=== PATIENT | female | born 1970 | race Caucasian/White ===

== ENCOUNTER 2020-09-12 10:45 | Outpatient (REF) | payer OTHER, SELFPAY ==
--- NOTE | 2020-09-12 15:25 | MHC.AU.P13 ---
Adult Audiological Evaluation Date of Visit: 09/12/20 Reason for Appointment: Patient was diagnosed with hearing loss approximately 3 years ago. She has been using hearing aids since 06/09/2017. About one month ago, patient unexpectedly went into a diabetic coma. She had not been diagnosed with diabetes prior to this incident. She spent several days in the hospital, during which she also developed sepsis. She was given IV antibiotics, including Gentamicin. Since these events, she has noticed a significant decrease in her hearing. Previous Hearing Test Results: On 04/06/2017 at [facility]- Overall mild/moderate sensorineural hearing loss bilaterally Ear History: Family History of Hearing Loss?: Yes: Mother Ear Infections in Childhood: Both Ears Previous Ear Surgery: Multiple sets of PE tubes in childhood Medical History: Medical History: Diabetes, Migraines, Tobacco Use Hearing Instrument History- Right Ear: Sheet Metal Worker Helper: Oticon Model: OPN 2 miniRITE-T 85 Serial Number: [id number] Dispensed By: [facility] Date of Fittin06/09/2017 Hearing aids are currently lost and no longer under the loss and damage warranty. Hearing Instrument History- Left Ear: Sheet Metal Worker Helper: Oticon Model: OPN 2 miniRITE-T 85 Serial Number: [id number] Dispensed By: [facility] Date of Fittin06/09/2017 Hearing aids are currently lost and no longer under the loss and damage warranty. Otoscopy: Right Ear: Unremarkable Left Ear: Unremarkable Tympanometry: Right Ear: Normal Middle Ear System (Type A) Left Ear: Normal Middle Ear System (Type A) Hearing Evaluation: Transducer(s) Used: Insert Earphones, Bone Conduction Method: Conventional Audiometry Stimuli Used: Pure Tones Right Ear: Description of Hearing: Overall moderately-severe sensorineural hearing loss Left Ear: Description of Hearing: Overall moderately-severe sensorineural hearing loss Speech Recognition Threshold (SRT): Method Used: Recorded Lists Stimuli Used: Spondee Words Right Ear: 55 dBHL Left Ear: 55 dBHL Word Discrimination: Method: Recorded Lists Word Lists Used: NU-6 Right Ear: 92% at 80 dBHL Left Ear: 96% at 80 dBHL Most Comfortable Level (MCL): Right Ear: 80 dBHL Left Ear: 80 dBHL Comparison: Compared to an evaluation from 04/06/2017 at [facility], hearing has decreased significantly in both ears. Recommendations: Audiological re-evaluation in one year. Hearing has decreased significantly since last evaluation in 2017. A follow-up with Ear, Nose, and Throat may be warranted to address the hearing changes following the patient's hospitalization. Patient's hearing aids are lost and are no longer under the loss and damage warranty. A request will be sent to her insurance for new hearing aids. If approved, patient will be contacted to schedule a hearing aid fitting. If approved, we will order a pair of M2M Solutioneo M70-R in color P1 with size 1M receivers and slim tips. Impressions were taken bilaterally without incident and will be sent to [employer] upon approval. Diagnosis: Primary Diagnosis: H90.3 Bilateral Sensorineural Hearing Loss Services Performed: Services Performed: Comprehensive Audiological Evaluation (CPT 29274) Tympanometry (CPT 38649) Signature: Provider: Mary Stevenson, KELSEA-A
--- NOTE | 2020-09-14 08:25 | MHC.AU.MED ---
Medical Clearance for Hearing Instrumentation Date: 09/14/20 Patient Name: Karly Rajput Date of : 1970 Dear Philly Moss MD, We have seen your patient on 09/12/2020 and have determined that they are a candidate for amplification (See accompanying report). Specifically, they would benefit from: Hearing aid use in both ears There is a statute that addresses Medical Evaluation Requirements prior to fitting a patient with a hearing aid. According to [place] statute 265 CMR:6.03(1), (a) General. Except as provided in 265 CMR 6.03(1)(b), a warp tier shall not sell a hearing aid unless the prospective user has presented to the warp tier a written statement signed by a licensed physician that states that the patient's hearing loss has been medically evaluated and the patient may be considered a candidate for a hearing aid. The medical evaluation must have taken place within the preceding six months. Please note: Due to the [place] Statute referenced above, we cannot accept a signature other than that of a licensed physician. TILE LAYER DRAINAGE and PA signatures cannot be accepted. I am in agreement with the above recommendation. There is no medical contraindication for hearing instrumentation. Physician Signature Date Physician Name (Printed)
== END 2020-09-12 10:46 | disposition home or self-care (01) ==
LOC: HO.SH 10:45
PROVIDERS: PCP Internal Medicine; Referring Provider Internal Medicine; Visit Provider Internal Medicine
DX: H90.3 Sensorineural hearing loss, bilateral (principal); B35.6 Tinea cruris
CPT/HCPCS: 92557; 92567

== ENCOUNTER 2020-12-06 15:09 | Outpatient (REF) | payer OTHER, SELFPAY | END 2020-12-06 15:10 | disposition home or self-care (01) | LOC: HO.HAP 15:09 | PROVIDERS: Visit Provider Internal Medicine | DX: Z46.1 Encounter for fitting and adjustment of hearing aid (principal); H90.3 Sensorineural hearing loss, bilateral | CPT/HCPCS: V5011; V5020; V5160; V5261; V5264 ==

== ENCOUNTER 2022-11-27 10:24 | Outpatient (REF) | payer OTHER, SELFPAY ==
--- NOTE | 2022-11-27 12:49 | MHC.AU.HA3 ---
Hearing Instrument Follow-Up- Binaural Date of Visit: 11/27/22 Right Ear: Shane, Model, Color, Serial Number: Deyvi Gonsalves P70-R, #[id number] Repairing Calibrator Repair Warranty: 02/27/2024 Repairing Calibrator Loss and Damage Warranty: 02/27/2024 Battery Size: Rechargeable Door Frame Assembler Machine/Slim Tube: 1 M Earmold/Dome/CShell/SlimTip:cShell, SN: [id number], Service Warranty: 03/29/2021 Type of Wax Guard: Cerustop Dispensed By: [facility] Date of Fittin12/05/2020 Left Ear: Shane, Model, Color, Serial Number: Deyvi Gonsalves P70-R, #[id number] Repairing Calibrator Repair Warranty: 02/27/2024 Repairing Calibrator Loss and Damage Warranty: 02/27/2024 Battery Size: Rechargeable Door Frame Assembler Machine/Slim Tube: 1 M Earmold/Dome/CShell/SlimTip: Bryanna, SN: [id number], Service Warranty: 03/29/2021 Type of Wax Guard: Cerustop Dispensed By: [facility] Date of Fittin12/06/2020 Follow-Up Summary: Patient's last visit was the fitting on 12/06/2020. She reports she has been unable to follow-up until now as she spent a significant amount of time out of state taking care of her mother, and then had major health issues of her own. In 2021, she spent 2 months in the ICU with severe pneumonia. She recalls that she was given IV vancomycin and was at one point on a ventilator, but does not have full memory of everything that happened during this time due to the severe state she was in. She has noticed her hearing seems worse since these events. She reports that the administrative support clerk wires have not been long enough. The hearing aids are pulling forward, then flopping off her ears. New impressions were taken bilaterally without incident for new cShells. We will order with a size 2 wire. Recommendations: Due to the suspected change in hearing, an updated audio eval is highly recommended. She will contact her PCP today and ask them to fax an order. If possible, it would be ideal to fit the new cShells on the same day as the audio; however, we are currently booking into December for audios, and the cShells will likely arrive before then. When the cShells come in, we can ask the patient if she would like to wait until her scheduled audio to fit them, or if she would like to come in for them sooner than her scheduled audio. Diagnosis Code(s): Primary Diagnosis: H90.3 Bilateral Sensorineural Hearing Loss Signature: Provider: Felipa Stevenson, KELSAE-A
== END 2022-11-27 10:25 | disposition home or self-care (01) ==
LOC: HO.HAP 10:24
PROVIDERS: Visit Provider Internal Medicine
DX: Z46.1 Encounter for fitting and adjustment of hearing aid (principal); H90.3 Sensorineural hearing loss, bilateral
CPT/HCPCS: V5275

== ENCOUNTER 2022-12-18 14:49 | Outpatient (REF) | payer OTHER, SELFPAY ==
--- NOTE | 2022-12-18 15:40 | MHC.AU.HA3 ---
Hearing Instrument Follow-Up- Binaural Date of Visit: 12/18/22 Right Ear: Shane, Model, Color, Serial Number: Deyvi Gonsalves P70-R, #[id number] Commercial Real Estate Associate Repair Warranty: 03/06/2023 Commercial Real Estate Associate Loss and Damage Warranty: 02/27/2024 Earmold/Dome/CShell/SlimTip:cShell New Serial #[id number] Milligan, Size 2M drafter topographical Type of Wax Guard: Cerustop Dispensed By: [facility], Date of Fittin12/05/2020 Left Ear: Shane, Model, Color, Serial Number: Deyvi Gibsono P70-R, #[id number] Commercial Real Estate Associate Repair Warranty: 03/06/2023 Commercial Real Estate Associate Loss and Damage Warranty: 02/27/2024 Earmold/Dome/CShell/SlimTip: cShell New Serial #[id number], Milligan, Size 2M drafter topographical Type of Wax Guard: Cerustop Dispensed By: [facility], Date of Fittin12/06/2020 Follow-Up Summary: Patient arrived to fit new cShells with longer receivers to her hearing aids; however, when she was cleaning the hearing aids, the right hearing aid fell in the toilet and was accidentally flushed. The new left cShell was coupled to the left hearing aid. It fits well. She feels it is more secure and thinks the longer drafter topographical length is more comfortable. A loss and damage form for the right hearing aid was filled out and e-mailed to [employer]. We will hold onto the new right cShell until the replacement hearing aid arrives. Recommendations: Patient will be contacted when materials have arrived. Diagnosis Code(s): Primary Diagnosis: H90.3 Bilateral Sensorineural Hearing Loss Signature: Provider: Felipa Stevenson, KELSEA-A
== END 2022-12-18 14:50 | disposition home or self-care (01) ==
LOC: HO.HAP 14:49
PROVIDERS: Visit Provider Internal Medicine
DX: Z46.1 Encounter for fitting and adjustment of hearing aid (principal); H90.3 Sensorineural hearing loss, bilateral
CPT/HCPCS: V5264

== ENCOUNTER 2022-12-29 13:55 | Outpatient (REF) | payer OTHER, SELFPAY ==
--- NOTE | 2022-12-29 15:50 | MHC.AU.HA3 ---
Hearing Instrument Follow-Up- Binaural Date of Visit: 12/29/22 Right Ear: Shane, Model, Color, Serial Number: Deyvi Gonsalves P70-R SN: [id number] Color: Sand Beige Epic Beacon Analyst Repair Warranty: 02/27/2024 Epic Beacon Analyst Loss and Damage Warranty: USED 12/29/2022 Battery Size: Rechargeable Metal Mold Dresser/Slim Tube: 2P Earmold/Dome/CShell/SlimTip: cShell SN: [id number] Kiera: 03/06/2023 Type of Wax Guard: CeruStop Dispensed By: [facility] Date of Fittin12/06/2020 Left Ear: Shane, Model, Color, Serial Number: Deyvi Gonsalves P70-R SN: [id number] Color: Sand Beige Epic Beacon Analyst Repair Warranty: 02/27/2024 Epic Beacon Analyst Loss and Damage Warranty: 02/27/2024 Battery Size: Rechargeable Metal Mold Dresser/Slim Tube: 2P Earmold/Dome/CShell/SlimTip: cShell SN: [id number] Kiera: 03/06/2023 Type of Wax Guard: CeruStop Dispensed By: [facility] Date of Fittin12/06/2020 Follow-Up Summary: Karly picked up the replacement right hearing aid and new c-shell with longer bar assistant wire. She did not bring her left hearing aid to this appointment. Reprogrammed right hearing aid to previous settings and re-ran feedback real estate sales manager. Karly reported good overall sound quality although slightly loud but not uncomfortable. New c-shell and longer bar assistant wire good fit. Recommendations: Reminded Karly to obtain doctor's order for updated hearing test due to perceived change in hearing after hospitalization. Return with both hearing aids for binaural reprogramming following updated hearing evaluation. Diagnosis Code(s): Primary Diagnosis: H90.3 Bilateral Sensorineural Hearing Loss Signature: Provider: Felipa Aranda, [facility]
== END 2022-12-29 13:56 | disposition home or self-care (01) ==
LOC: HO.HAP 13:55
PROVIDERS: Visit Provider Internal Medicine
DX: Z46.1 Encounter for fitting and adjustment of hearing aid (principal); H90.3 Sensorineural hearing loss, bilateral
CPT/HCPCS: 92592

== ENCOUNTER 2025-05-04 14:14 | Outpatient (REF) | payer OTHER, SELFPAY ==
--- NOTE | 2025-05-04 | EEG_ITS ---
Disease 16 channel EEG with an EKG lead. Patient is reported awake during the tracing. Background EEG rhythm is 10-12 hertz 5-50 microvolt posteriorly and lower amplitude fast anteriorly. Photic stimulation does not produce any significant abnormality. Hyperventilation is unremarkable. No sharp wave spikes or paroxysmal tendency noted. Impression: No significant abnormality noted on this EEG. MTDD
--- OUTSIDE RECORDS SUMMARY | 2025-05-04 14:17 | XMS_ITS | Clinical Summary ---
Author Organization [facility] Facility Address [address] [place] [id number] Care Team Providers Care Legal Manager Name Role Phone Unavailable Primary Care Provider Unavailabl e Social History Tobacco Use Types Packs/Day Years Used Date Smoking Tobacco: Never Assessed Comments Unknown Sex and Gender Information Value Date Recorded Sex Assigned at Not on file Legal Sex Female 3:27 PM EST Gender Identity Not on file Sexual Orientation Not on file Plan of Treatment Health Maintenance Due Date Last Done Comments Breast Cancer Screening 1970 Hepatitis B Vaccine (1 of 3 - 19+ 3-dose series) 1987 08/25/2012, 08/06/2011 Pneumococcal Vaccine: 50+ Ye ars (1 of 2 - PCV) 1987 Colorectal Cancer Screening: Annual FOBT 2017 Colorectal Cancer Screening: Colonoscopy 2017 Colorectal Cancer Screening: Sigmoidoscopy 2017 Diabetes: Hemoglobin A1C 10/25/2022 Diabetes: Ophthalmology Exam 10/25/2022 Diabetes: Pedal Pulse Checked 10/25/2022 Diabetes: Sensory Foot Exam 10/25/2022 Diabetes: Visual Foot Exam 10/25/2022 Influenza Vaccine (Season Ended) 2025 Insurance [facility] Medicaid
== END 2025-05-04 14:15 | disposition home or self-care (01) ==
LOC: HO.NEURO 14:14
PROVIDERS: Visit Provider Psychiatry & Neurology Neurology
DX: G93.40 Encephalopathy, unspecified (principal)
CPT/HCPCS: 95819

== ENCOUNTER → 2025-05-04 14:14 | Outpatient (BNV) | payer OTHER, SELFPAY | PROVIDERS: Visit Provider Psychiatry & Neurology Neurology | DX: G93.40 Encephalopathy, unspecified (principal) | CPT/HCPCS: 95816 ==

== ENCOUNTER 2025-07-25 14:09 | Outpatient (AMB) | payer OTHER, SELFPAY ==
--- OUTSIDE RECORDS SUMMARY | 2025-07-19 13:00 | XMS_ITS | Encounter Summary ---
Author Organization [facility] Address [address] [place] [address] Care Team Providers Care Tape Stringer Name Role Phone Philly Moss MD Primary Care Prov ider Reason for Referral * Imaging (Routine) - Closed Specialty Diagnoses / Procedures Referred By Daniela villalobos Referred To Contact Radiology Diagnoses Breast pain Procedures [facility] Digital Diagnostic w Steven Smith PA [address] [place] [address] Phone: tel: fax: [address] [address] Phone: tel: Referral ID Status Reason Start Date Expiration Date Visits Re quested Visits Authorized [id number] Closed 04/20/2025 04/20/2026 1 1 Reason for Visit * Imaging (Routine) - Closed Specialty Diagnoses / Procedures Referred By Daniela villalobos Referred To Contact Radiology Diagnoses Breast pain Procedures [facility] Mammo Digital Diagnostic w Wendi Steven El PA [address] [place] [address] Phone: tel: fax: [address] [address] Phone: tel: Referral ID Status Reason Start Date Expiration Date Visits Re quested Visits Authorized [id number] Closed 04/20/2025 04/20/2026 1 1 Encounter Details Date Type Department Care Team (Latest Contact Info) Description 07/19/2025 1:00 PM EDT - 07/19/2025 11:59 PM EDT Hospital [facility] [address] [address] Breast pain Discharge Disposition: Home or Self Care Social History Tobacco Use Types Packs/Day Years Used Date Smoking Tobacco: Every Day Cigarettes 1.5 41.7 Started: 11/02/1983 Smokeless Tobacco: Never Alcohol Use Standard Drinks/Week Comments No 0 (1 standard drink = 0.6 oz pur e alcohol) Interpersonal Safety Answer Date Record ed Physical Abuse 03/21/2025 Verbal Abuse 03/21/2025 Comments No Sex and Gender Information Value Date Recorded Sex Assigned at Female 12/02/2024 1:12 PM EST Legal Sex Female 11:19 PM EST Gender Identity Female 12/02/2024 1:12 PM EST Sexual Orientation Straight 12/02/2024 1: 12 PM EST documented as of this encounter Last Filed Vital Signs Vital Sign Reading Time Taken Comments Blood Pressure - - Pulse - - Temperature - - Respiratory Rate - - Oxygen Saturation - - Inhaled Oxygen Concentration - - Weight 79.4 kg (175 lb) 07/19/2025 1:23 PM EDT Height 165.1 cm (5' 5 ) 07/19/2025 1:23 PM EDT Body Mass Index 29.12 07/19/2025 1:23 PM EDT documented in this encounter Medications at Time of Discharge albuterol HFA (PROAIR HFA ; PROVENTIL HFA ; VENTOLIN HFA) 90 mcg/actuation inhalerIndication s:Chronic obstructive pulmonary disease, unspecified COPD type (CMS/HCC V24, CMS/HCC V28) Inhale 2 puffs by mouth every 4 (four) hours if needed for wheezing or shortness of breath (cough). 6.7 g 3 5 amphetamine-dextr oamphetamine XR (ADDERALL XR) 30 mg 24 hr capsule Take 1 capsule (30 mg total) by mouth 1 (one) time each day. 1 BD Ultra-Fine Short Pen Needle 31 gauge x 5/16 needle USE DIRECTED. FOR INJECTIONS FOUR TIMES A DAY 100 each 2 5 buprenorphine-nal oxone (Suboxone) 8-2 mg per SL film Place 1 film under the tongue 2 (two) times a day. 4 buPROPion XL (WELLBUTRIN XL) 150 mg 24 hr tablet Take 1 tablet (150 mg total) by mouth 1 (one) time each day. 3 clonazePAM (KlonoPIN) 1 mg tablet Take 1 tablet (1 mg total) by mouth 4 (four) times a day if needed for anxiety. esomeprazole magnesium (NexIUM 24HR) 20 mg tablet,delayed release (DR/EC) Take 20 mg by mouth 1 (one) time each day. 90 tablet 5 fluticasone propion-salmetero L (ADVAIR HFA) 230-21 mcg/actuation inhalerIndication s:Chronic obstructive pulmonary disease with acute exacerbation (CMS/HCC V24, CMS/HCC V28) Inhale 2 puffs by mouth 2 (two) times a day. This medication has inhaler steroid: Rinse mouth with water and expectorate after each dose to prevent oral/esophageal candidiasis or fungal infection. 3 each 1 5 FREESTYLE LANCETS MISC USE DIRECTED. THREE TIMES A DAY 4 gabapentin (NEURONTIN) 300 mg capsule TAKE 1 CAPSULE BY MOUTH THREE TIMES A DAY 270 capsule 1 5 ibuprofen (ADVIL,MOTRIN) 800 mg tablet Take 1 tablet (800 mg total) by mouth every 8 (eight) hours if needed (Pain). 90 tablet 5 Januvia 50 mg tablet TAKE 1 TABLET BY MOUTH DAILY 90 tablet 1 5 Lantus Solostar U-100 Insulin 100 unit/mL (3 mL) injection pen USE 14 UNITS SUBCUTANEOUSLY EVERY NIGHT AT BEDTIME 15 mL 2 5 melatonin 3 mg tablet Take 2 tablets (6 mg total) by mouth at bedtime. 5 omeprazole (PriLOSEC) [address] capsule Take 1 capsule (20 mg total) by mouth 1 (one) time each day. 90 capsule 1 5 QUEtiapine (SEROquel) 100 mg tablet Take 1 tablet (100 mg total) by mouth at bedtime. 1 QUEtiapine (SEROquel) 300 mg tablet Take 1 tablet (300 mg total) by mouth at bedtime. syr,ndl,ins,safe 0.5mL,disp un (INSULIN SYRINGE-NEEDLE,DI SPOS. MISC) USE ONE NEEDLE PER INJECTION DIRECTED 4 tiotropium (Spiriva Respimat) 1.25 mcg/actuation inhalation sprayIndications: Chronic obstructive pulmonary disease with acute exacerbation (CMS/HCC V24, CMS/HCC V28) Inhale 2 puffs by mouth 1 (one) time each day. 3 each 1 5 venlafaxine XR (EFFEXOR-XR) 150 mg 24 hr capsule Take 1 capsule (150 mg total) by mouth 2 (two) times a day. documented as of this encounter Discharge Disposition Disposition Code Departure Means Destination Home or Self Care documented in this encounter Plan of Treatment Upcoming Encounters Date Type Department Care Team (Late st Contact Info) Description 07/31/2025 2:00 PM EDT Office Visit Adult Medicine - [place] [address] [place] [address] Steven Abrams PA [address] [place] [address] 09/14/2025 2:45 PM EST Office Visit Pulmonology - [place] [address] [facility] [address] [place] [id number] Porsche Hernandez NP [address] [place] [phone] documented as of this encounter Procedures Procedure Name Priority Date/Time Associated Diagnosis Comments [facility] MAMMO DIGITAL DIAGNOSTIC W WENDI BILAT Routine 07/19/2025 2:40 PM EDT Breast pain documented in this encounter Results * [facility] Mammo Digital Diagnostic w Wendi bilat (07/19/2025 2:40 PM EDT) Anatomical Region Laterality Modality Breast Bilateral Mammography 07/19/2025 2:39 PM EDT Impressions 07/19/2025 2:42 PM EDT No evidence of breast malignancy. Patient was instructed to follow-up with her referring physician. BI-RADS CATEGORY: Mammography: 1 - NEGATIVE Ultrasound: 1 - NEGATIVE RECOMMENDATIONS: Screening bilateral mammogram is recommended in 1 year. Mammo Location: [facility], [address] [place] [address], [address], . -------- FINAL REPORT -------- Dictated By: Sania Montano Dictated Date: 07/19/2025 14:39 ET Assigned Physician: Sania Montano Reviewed and Electronically Signed By: Sania Montano Signed Date: 07/19/2025 14:42 ET Workstation ID: [id number] Transcribed By: Self Edit Transcribed Date: 07/19/2025 14:39 ET Narrative 07/19/2025 2:42 PM EDT CLINICAL: 55 years old, Female, right breast pain. Baseline exam. COMPARISON: None FINDINGS: MAMMOGRAPHY TECHNIQUE: Bilateral MLO and CC views were obtained digitally with 3-D mammogram (digital breast tomosynthesis). Computer-aided detection was utilized in evaluation of this exam (CAD). There is no evidence of suspicious mass or architectural distortion. No worrisome calcifications are evident. A few intramammary lymph nodes are seen in the right upper outer quadrant. BREAST DENSITY: B - There are scattered areas of fibroglandular density. ULTRASOUND TECHNIQUE: Ultrasound survey evaluation of the right breast was performed. Targeted ultrasound of the right breast demonstrates normal fibroglandular tissue. No suspicious mass or cyst. Procedure Note Sania Montano MD - 07/19/2025 CLINICAL: 55 years old, Female, right breast pain. Baseline exam. COMPARISON: None FINDINGS: MAMMOGRAPHY TECHNIQUE: Bilateral MLO and CC views were obtained digitally with 3-Dmammogram (digital breast tomosynthesis). Computer-aided detection wasutilized in evaluation of this exam (CAD). There is no evidence of suspicious mass or architectural distortion. Noworrisome calcifications are evident. A few intramammary lymph nodes areseen in the right upper outer quadrant. BREAST DENSITY: B - There are scattered areas of fibroglandular density. ULTRASOUND TECHNIQUE: Ultrasound survey evaluation of the right breast wasperformed. Targeted ultrasound of the right breast demonstrates normal fibroglandulartissue. No suspicious mass or cyst. IMPRESSION: No evidence of breast malignancy. Patient was instructed to follow-upwith her referring physician. BI-RADS CATEGORY: Mammography: 1 - NEGATIVE Ultrasound: 1 - NEGATIVE RECOMMENDATIONS: Screening bilateral mammogram is recommended in 1 year. Mammo Location: [facility], [address] [place] [address], [id number], . -------- FINAL REPORT -------- Dictated By: Sania Montano Dictated Date: 07/19/2025 14:39 ET Assigned Physician: Sania Montano Reviewed and Electronically Signed By: Sania Montano Signed Date: 07/19/2025 14:42 ET Workstation ID: [id number] Transcribed By: Self Edit Transcribed Date: 07/19/2025 14:39 ET Steven HANEY IMG BI PROCEDURES Final Result documented in this encounter Visit Diagnoses Diagnosis Breast pain Mastodynia documented in this encounter Care Teams Tape Stringer Relationship Specialty Start Date End Date Philly Moss MD [address] [place] [id number] PCP - General Internal Medicine 08/29/24 documented as of this encounter
--- OUTSIDE RECORDS SUMMARY | 2025-07-19 13:53 | XMS_ITS | Encounter Summary ---
Author Organization [facility] Address [address] [place] [address] Care Team Providers Care Supervisor Fishing Name Role Phone Philly Moss MD Primary Care Prov ider Reason for Referral * Imaging (Routine) - Closed Specialty Diagnoses / Procedures Referred By Contac t Referred To Contact Radiology Diagnoses Breast pain Procedures US Axilla (Breast) Limited Right Steven Abrams PA [address] [place] [address] Phone: tel: fax: [address] [phone] Phone: tel: Referral ID Status Reason Start Date Expiration Date Visits Re quested Visits Authorized [id number] Closed 04/20/2025 04/20/2026 1 1 Reason for Visit * Imaging (Routine) - Closed Specialty Diagnoses / Procedures Referred By Contac t Referred To Contact Radiology Diagnoses Breast pain Procedures US Axilla (Breast) Limited Right Steven Abrams PA [address] [place], [place] Phone: tel: fax: [address] [phone] Phone: tel: Referral ID Status Reason Start Date Expiration Date Visits Re quested Visits Authorized [id number] Closed 04/20/2025 04/20/2026 1 1 Encounter Details Date Type Department Care Team (Latest Contact Info) Description 07/19/2025 1:53 PM EDT - 07/19/2025 11:59 PM EDT Hospital Encounter [facility] Ultrasound [address] [place] [address] Breast pain Discharge Disposition: Home or [...] PM EST documented as of this encounter Medications at Time of Discharge [...] PM EDT Office Visit Adult Medicine - [place] [address] [place] [phone] Steven Abrams PA [address] [place] [address] 09/14/2025 2:45 PM EST Office Visit Pulmonology - [address] [place] [phone] Porsche Hernandez NP [address] [place] [phone] documented as of this encounter Procedures Procedure Name Priority Date/Time Associated Diagnosis Comments US AXILLA (BREAST) LIMITED RIGHT Routine 07/19/2025 2:34 PM EDT Breast pain documented in this encounter Results * US Axilla (Breast) Limited Right (07/19/2025 2:34 PM EDT) Anatomical Region Laterality Modality Breast Right Ultrasound 07/19/2025 2:39 PM EDT Impressions 07/19/2025 2:42 PM EDT No evidence of breast malignancy. Patient was instructed to follow-up with her referring physician. BI-RADS CATEGORY: Mammography: 1 - NEGATIVE Ultrasound: 1 - NEGATIVE RECOMMENDATIONS: Screening bilateral mammogram is recommended in 1 year. Mammo Location: [facility], [address] [place], [place], [address], . -------- FINAL REPORT -------- Dictated By: Sania Montano Dictated Date: 07/19/2025 14:39 ET Assigned Physician: Sania Montano Reviewed and Electronically Signed By: Sania Montano Signed Date: 07/19/2025 14:42 ET Workstation ID: [id number] Transcribed By: Self Edit Transcribed Date: 07/19/2025 [...] year. Mammo Location: [facility] at [address], [id number], . -------- FINAL REPORT -------- Dictated By: Sania Montano Dictated Date: 07/19/2025 14:39 ET Assigned Physician: Sania Montano Reviewed and Electronically Signed By: Sania Montano Signed Date: 07/19/2025 14:42 ET Workstation ID: [id number] Transcribed By: Self Edit Transcribed Date: 07/19/2025 14:39 ET us Steven HANEY IMG US PROCEDURES Final Result documented in this encounter Visit Diagnoses Diagnosis Breast pain Mastodynia documented in this encounter Care Teams Supervisor Fishing Relationship Specialty Start Date End Date Philly Moss MD [address] [place] [id number] PCP - General Internal Medicine 08/29/24 documented as of this encounter
--- NOTE | 2025-07-25 14:26 | A.OFFVIS_ITS ---
Intake Visit Reasons: concerns with her head/mind Allergies cephalexin Allergy (Unknown, Verified 05/11/25 11:11) Other tramadol Allergy (Unknown, Verified 05/11/25 11:11) Other Codeine Sulfate Allergy (Unknown, Uncoded 05/11/25 11:11) Other HPI Comments Details: 55 yo woman with COPD, frequent lung infections, type II DM, opioid related suboxone, and bipolar disorder. She was here with new symptoms of confusion, not able to take care of herself, falling, and urination. She was admitted at [facility] a few days ago with some of these symptoms. She was not doing any drugs now, and not drinking alcohol. No overt seizure like episode. She was here with the . No new symptoms though her previously mentioned cognitive issues have continued. [facility] Medical History (Updated 07/25/25 @ 14:36 by Lakisha Monroe MD) Pneumonia Peripheral neuropathy Insomnia ADD (attention deficit disorder) H/O polydrug abuse Anxiety disorder Bipolar disorder Type 2 diabetes mellitus Encephalopathy Review of Systems Const Details: No headaches or loss of weight or seizure-like episode Physical Exam Neuro Other: She is alert and awake with normal spontaneity of speech fluency comprehension and anxious affect. She said that she did not understand what was going on. Assessment & Plan Assessment & Plan (1) Encephalopathy: Comment: EEG at [facility] in April 2025: [place] MRI brain WO at [facility] in April 2021: mild MVD CT brain WO at [facility] in April 2021: [place] C spine at [facility] in April 2021: [place] CT Chest at [facility] in April 2021: extensive lung infiltrates CT Abd at [facility] in April 2021: [place]. 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 MRI of brain labs were not done and there were ordered. Orders: Orders MR head/brain wo/w con Today G93.40 - Encephalopathy, unspecified Erythrocyte Sedimentation Rate Today G93.40 - Encephalopathy, unspecified Syphilis Screen Today G93.40 - Encephalopathy, unspecified HIV Ab/Ag Today G93.40 - Encephalopathy, unspecified Lyme IgG/IgM w/reflex to WB Today G93.40 - Encephalopathy, unspecified Coding Level of Care Code Est Pt Level 4 (66551) Diagnoses Encephalopathy, unspecified type G93.40 Encephalopathy type: unspecified encephalopathy
--- OUTSIDE RECORDS SUMMARY | 2025-07-25 17:28 | XMS_ITS ---
[facility] Organization Unknown Care Team Organization Name Specialty Phone Email Start Date End Da te [facility] ROSENDO NIELSEN Primary Care 09/09/2022 06/20/2024
--- OUTSIDE RECORDS SUMMARY | 2025-07-25 17:28 | XMS_ITS | Clinical Summary ---
Author Organization [facility] Address [address] [place] [address] Care Team Providers Care Master Fire Control Technician Name Role Phone Unavailable Primary Care Provider [...] Diabetes: Visual Foot Exam 10/25/2022 Influenza Vaccine (#1) 2025 Insurance [facility] [place] [address]
--- OUTSIDE RECORDS SUMMARY | 2025-07-25 17:28 | XMS_ITS | Encounter Summary ---
Author Organization [facility] Address [address] [place] [address] Care Team Providers Care Blast Furnace Keeper Helper Name Role Phone Philly Moss MD Primary Care Prov ider Reason for Visit * Reason Onset Date Comments provider call back 06/19/2025 Encounter Details Date Type Department Care Team (Late st Contact Info) Description 06/19/2025 Telephone Pulmonology - [place] [address] [place] [address] Porsche Hernandez NP [address] [place] [phone] Social History Tobacco Use Types Packs/Day Years [...] PM EST documented as of this encounter Progress Notes * Alexandria Harp MA - 06/20/2025 9:55 AM EDT Lvm to call to schedule * Porsche Hernandez NP - 06/19/2025 3:36 PM EDT Yes. She needs to be seeing. I will not prescribe prednisone without seeing her. thanks * Alexandria Harp MA - 06/19/2025 11:48 AM EDT Please let me know if you need to see her * Julianne Peck - 06/19/2025 10:38 AM EDT Patient calling because she has a lot of build up in her chest and the medication she I son doesn'thelp. She would like provider to call her because she doesn't know what to do . She said when they gave her prednisone at the hospital it helped a lot . She doesn't know if she needs stronger inhaler or prednisone. Please advise documented in this encounter Plan of Treatment Upcoming Encounters Date Type Department Care Team (Late st Contact Info) Description 07/31/2025 2:00 PM EDT Office Visit Adult Medicine - [place] [address] [place] [phone] Steven Abrams PA [address] [place] [address] 09/14/2025 2:45 PM EST Office Visit Pulmonology - [address] [place] [phone] Porsche Hernandez NP [address] [place] [phone] documented as of this encounter Visit Diagnoses Not on filedocumented in this encounter Care Teams Blast Furnace Keeper Helper Relationship Specialty Start Date End Date Philly Moss MD [address] [place] [address] PCP - General Internal Medicine 08/29/24 documented as of this encounter
--- OUTSIDE RECORDS SUMMARY | 2025-07-25 17:28 | XMS_ITS | Clinical Summary ---
Author Organization [facility] Address [address] [place] [address] Care Team Providers Care System Programmer Name Role Phone Philly Moss MD Primary Care Prov ider Allergies Active Allergy Reactions Criticality Noted Date Comments Cephalexin 03/01/2009 Codeine 03/01/2009 Nsaids (Non-Steroidal Anti-Inflammatory Drug) 03/01/2009 Tramadol Nausea And Vomiting 07/28/2016 Medications FREESTYLE LANCETS MISC USE DIRECTED. THREE TIMES A DAY 024 Active syr,ndl,ins,saf e 0.5mL,disp un (INSULIN SYRINGE-NEEDLE, DISPOS. MISC) USE ONE NEEDLE PER INJECTION DIRECTED 024 Active albuterol 2.5 mg /3 mL (0.083 %) nebulizer solution Take 3 mL (2.5 mg total) by nebulization every 6 (six) hours if needed for wheezing or shortness of breath (cough). for up to 180 days. 024 Active buPROPion XL (WELLBUTRIN XL) 150 mg 24 hr tablet Take 1 tablet (150 mg total) by mouth 1 (one) time each day. 023 Active amphetamine-dex troamphetamine XR (ADDERALL XR) 30 mg 24 hr capsule Take 1 capsule (30 mg total) by mouth 1 (one) time each day. 021 Active QUEtiapine (SEROquel) 100 mg tablet Take 1 tablet (100 mg total) by mouth at bedtime. 021 Active QUEtiapine (SEROquel) 300 mg tablet Take 1 tablet (300 mg total) by mouth at bedtime. Active venlafaxine XR (EFFEXOR-XR) 150 mg 24 hr capsule Take 1 capsule (150 mg total) by mouth 2 (two) times a day. Active clonazePAM (KlonoPIN) 1 mg tablet Take 1 tablet (1 mg total) by mouth 4 (four) times a day if needed for anxiety. Active buprenorphine-n aloxone (Suboxone) 8-2 mg [address] film Place 1 film under the tongue 2 (two) times a day. 024 Active BD Ultra-Fine Short Pen Needle 31 gauge x 5/16 needle USE DIRECTED. FOR INJECTIONS FOUR TIMES A DAY 100 each 2 025 Active Januvia 50 mg tablet TAKE 1 TABLET BY MOUTH DAILY 90 tablet 1 025 Active gabapentin (NEURONTIN) 300 mg capsule TAKE 1 CAPSULE BY MOUTH THREE TIMES A DAY 270 capsule 1 025 Active melatonin 3 mg tablet Take 2 tablets (6 mg total) by mouth at bedtime. 025 Active nicotine (NICODERM CQ) 21 mg/[address] 1 patch on the skin 1 (one) time each day. 30 each 025 Active tiotropium (Spiriva Respimat) 1.25 mcg/actuation inhalation sprayIndication s:Chronic obstructive pulmonary disease with acute exacerbation (CMS/HCC V24, CMS/HCC V28) Inhale 2 puffs by mouth 1 (one) time each day. 3 each 1 025 Active omeprazole (PriLOSEC) [address] capsule Take 1 capsule (20 mg total) by mouth 1 (one) time each day. 90 capsule 1 025 Active esomeprazole magnesium (NexIUM 24HR) 20 mg tablet,delayed release (DR/EC) Take 20 mg by mouth 1 (one) time each day. 90 tablet 025 Active albuterol HFA (PROAIR HFA ; PROVENTIL HFA ; VENTOLIN HFA) 90 mcg/actuation inhalerIndicati ons:Chronic obstructive pulmonary disease, unspecified COPD type (CMS/HCC V24, CMS/HCC V28) Inhale 2 puffs by mouth every 4 (four) hours if needed for wheezing or shortness of breath (cough). 6.7 g 3 025 Active fluticasone propion-salmete roL (ADVAIR HFA) 230-21 mcg/actuation inhalerIndicati ons:Chronic obstructive pulmonary disease with acute exacerbation ([facility] V24, [facility] V28) Inhale 2 puffs by mouth 2 (two) times a day. This medication has inhaler steroid: Rinse mouth with water and expectorate after each dose to prevent oral/esophageal candidiasis or fungal infection. 3 each 1 Active ibuprofen (ADVIL,MOTRIN) 800 mg tablet Take 1 tablet (800 mg total) by mouth every 8 (eight) hours if needed (Pain). 90 tablet Active Lantus Solostar U-100 Insulin 100 unit/mL (3 mL) injection pen USE 14 UNITS SUBCUTANEOUSLY EVERY NIGHT AT BEDTIME 15 mL 2 025 Active insulin glargine (Lantus Solostar U-100 Insulin) 100 unit/mL (3 mL) injection pen Inject 14 Units under the skin at bedtime. 15 mL 1 025 2024 Discontinued ibuprofen (ADVIL,MOTRIN) 800 mg tablet Take 1 tablet (800 mg total) by mouth every 8 (eight) hours if needed (Pain). 90 tablet 025 2024 Discontinued(R eorder) Active Problems Problem Noted Date Diagnosed Date Respiratory distress 03/22/2025 Acute respiratory failure wi th hypoxia and hypercapnia ([facility] V24, [facility] V28) 03/21/2025 Nocturnal hypoxia 09/05/2023 Overview (08/03/2024): 08/04/23 DAVI on RA showed: 1. Lowest oxygen saturation is 87%. 2. Time spent less than 88% is 19 seconds. 3. No supplemental oxygen is indicated during sleep. 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 ([facility] V24, [facility] V28) 07/10/2022 COVID-19 12/04/2021 Overview (08/03/2024): 12/02/2021 Post concussion syndrome 03/22/2021 Non-proliferative diabetic r etinopathy ([facility] V24, [facility] V28) 06/30/2019 Retinal hemorrhage due to se condary diabetes ([facility] V24, [facility] V28) 04/27/2019 Overview (08/03/2024): Left eye S/p retonipexy for retinal tear Hidradenitis 10/31/2018 Type II diabetes mellitus wi th renal manifestations ([facility] V24, [facility] V28) 05/12/2018 Fatty liver 02/06/2016 Thyroid nodule 07/06/2014 Overview (08/03/2024): 07/16-confirmed by ultrasound; fine-needle aspiration non-malignant Ovarian cyst 04/07/2014 Pulmonary nodule seen on imaging study 4 Overview (08/03/2024): Repeat CAT scan in 07/17 Peripheral edema 08/01/2013 Leukocytosis 05/09/2013 Elevated LFTs 07/30/2011 Overview (08/03/2024): Mildly 07/29/11. Repeat LFTs and Hep panel in 1 mo. Obesity (BMI 30.0-34.9) 07/31/2010 Peptic ulcer disease 12/20/2009 Tobacco use disorder 04/30/2009 ADHD (attention deficit hyperactivity disorder) 03/01/2009 Overview (08/03/2024): Thierry Rodriguez at [facility]. IMO update Bipolar disorder ([facility] V24, [facility] V28) 02/02 Overview (08/03/2024): Kirby Clements. Encounters Date Type Department Care Team Description 07/19/2025 1:53 PM EDT - 07/19/2025 11:59 PM EDT Hospital Encounter [facility] Ultrasound [address] [place] [address] Breast pain Discharge Disposition: Home or Self Care 07/19/2025 1:00 PM EDT - 07/19/2025 11:59 PM EDT [facility]counter [facility] [address] [address] Breast pain Discharge Disposition: Home or Self Care 07/13/2025 Telephone Adult [address] [phone] Philly Laird MD 07/05/2025 Billing Patient Not Present Adult [address] [phone] Philly Laird MD Recurrent major depressive disorder, remission status unspecified ([facility] V24) (Primary Dx); Generalized anxiety disorder; Patient's noncompliance with other medical treatment and regimen due to unspecified reason; Borderline personality disorder ([facility] V24, [facility] V28); Acute respiratory failure with hypoxia ([facility] V24, [facility] V28); Pneumonia due to infectious organism, unspecified laterality, unspecified part of lung 07/05/2025 Telephone Adult [address] [phone] Philly Laird MD 06/28/2025 Telephone Adult [address] [phone] Philly Laird MD 06/27/2025 Telephone Adult [address] [phone] Philly Laird MD 06/26/2025 2:00 PM EDT Office Visit Adult [address] [phone] Steven Abrams PA Easy bruising (Primary Dx); Type 2 diabetes mellitus with other ophthalmic complication, with long-term current use of insulin ([facility] V24, [facility] V28); Bipolar affective disorder, remission status unspecified ([facility] V24, [facility] V28); Chronic bronchitis, unspecified chronic bronchitis type ([facility] V24, [facility] V28); Frequent falls; Altered mental status, unspecified altered mental status type 06/26/2025 Telephone Adult Medicine - [place] [place] [address] Steven Abrams PA 06/26/2025 Telephone Adult Medicine - [address] [place] [address] Steven Abrams PA 06/19/2025 Telephone Pulmonology - [place] [facility] [address] [place] [phone] Connie Mckeon NP 06/16/2025 Telephone Adult Medicine - [place] [place] [address] Philly Laird MD 06/13/2025 Telephone Adult Medicine - [place] [place], [place] [phone] Steven Abrams PA 05/24/2025 Telephone Adult Medicine - [place] [place], [place] [phone] Steven Abrams PA 05/18/2025 Telephone Adult Medicine - [place] [place] [address] Steven Abrams PA 05/18/2025 Telephone Adult Medicine - [place] [place] [address] Steven Abrams PA 05/12/2025 Telephone Pulmonology [facility] [address] [place] [phone] Alexandria Carlson [place] 05/11/2025 Billing Patient Not Present Adult Medicine - [place] [place] [address] Philly Laird MD Recurrent major depressive disorder, remission status unspecified ([facility] V24) (Primary Dx); Generalized anxiety disorder; Patient's noncompliance with other medical treatment and regimen due to unspecified reason; Borderline personality disorder ([facility] V24, [facility] V28); Acute respiratory failure with hypoxia ([facility] V24, [facility] V28); Pneumonia due to infectious organism, unspecified laterality, unspecified part of lung 05/10/2025 Telephone Adult [facility] [address] [place] [address] Philly Laird MD 05/09/2025 Telephone Adult [facility] [address] [place], [place] [phone] Philly Laird MD 05/09/2025 Telephone Adult [facility] [address] [place], [place] [phone] Philly Laird MD 05/08/2025 Telephone Pulmonology - [address] [place] [phone] [place]son [place] 05/02/2025 Telephone Adult [facility] [address] [place] [address] Philly Laird MD 05/02/2025 Telephone Adult [address] [phone] Philly Laird MD 05/01/2025 3:12 PM EDT - 05/01/2025 11:59 PM EDT Hospital Encounter XRAY - [address] [address] Chronic obstructive pulmonary disease with acute exacerbation ([facility] V24, [facility] V28); Nocturnal hypoxia; Bipolar affective disorder, remission status unspecified ([facility] V24, [facility] V28) Discharge Disposition: Home or Self Care 05/01/2025 2:30 PM EDT - 05/01/2025 11:59 PM EDT Hospital Encounter Radiology Department - [address] [phone] Post concussion syndrome Discharge Disposition: Home or Self Care 04/26/2025 Telephone Adult [address] [phone] Steven Abrams PA 04/25/2025 Telephone Adult Medicine - [place] [address] [place] [address] Steven Abrams PA 04/24/2025 Telephone Obstetrics and Gynecology - [address] [place] [address] Enrique Rubio CNM 04/24/2025 Telephone Adult Medicine - [place] [place] [phone] Steven Abrams PA from Last 3 Months Immunizations Name Administration Dates Next Due Hepatitis B (Auxtbvh-I-Ydkhe , Recombivax HB-Adult) 19yo and older 08/25/2012,08/06/2011 Influenza trivalent, with pr eservative (Fluzone; Afluria) 6mo and older 08/26/2022 Measles 07/28/2011 Mumps 07/28/2011 Rubella 07/28/2011 Tdap Tetanus diptheria acell ular pertussis (Boostrix; Adacel) 7yo and older 05/18/2013 Varicella live (Varivax) 12mo and older 07/28/20 11 Surgical History Surgery Date Site/Laterality Comments HYSTERECTOMY 2006 PROCEDURE: HISTORICAL HYSTERECTOMY WISDOM TOOTH EXTRACTION PROCEDURE: HISTORICAL WISDOM TEETH EXTRACTION OTHER SURGICAL HISTORY PROCEDURE: ---- OTHER ----; COMMENT: excision pilonidal disease OTHER SURGICAL HISTORY 2019 Left PROCEDURE: [place] RPR RETINAL DTCHMNT DRG SUBRETINAL FLUID PC Medical History Medical History Date Comments Bipolar disorder ([facility] V2 4, [facility] V28) DX:Bipolar disorder (HCC) ADD (attention deficit disorder) DX:ADD (attention deficit disorder) Morbid obesity ([facility] V24, [facility] V28) 07/28/2011 DX:Morbid obesity (HCC) Historical Medical DX 07/30/2011 DX:Elevate d LFT's Type 2 diabetes mellitus wit hout complication, without long-term current use of insulin ([facility] V24, [facility] V28) 03/26/2018 DX:Type 2 diabetes mellitus without complication, without long-term current use of insulin ([facility]) Uncontrolled type 2 diabetes mellitus with microalbuminuria, with long-term current use of insulin 05/12/2018 DX:Uncontrolled type 2 diabe kirsten mellitus with microalbuminuria, with long-term current use of insulin Noncompliance with treatment plan 05/12/2018 DX:Noncompliance with treatment plan Severe obesity (BMI 35.0-39. 9) with comorbidity (CMS/HCC V24, CMS/HCC V28) 07/21/2018 DX:Severe obesi ty (BMI 35.0- 39.9) with comorbidity (HCC) Pilonidal abscess DX:Pilonidal a bscess Family History Medical History Relation Name Comments Asthma Daughter 1 Diabetes Paternal Grandmother Asthma Son 1 Heart attack Neg Hx Stroke Neg Hx Relation Name Status Comments Daughter 1 Daughter 2 Alive Daughter 3 Alive Father Alive Maternal Grandfather (Age 91) ol d age Maternal Grandmother (Age 89) ol d age Mother Alive Paternal Grandmother Son 1 Son 2 Alive Social History Tobacco Use Types Packs/Day Years Used Date Smoking Tobacco: Every Day Cigarettes 1.5 41.7 Started: 11/02/1983 Smokeless Tobacco: Never Tobacco Cessation:Ready to Q uit: Not Asked; Counseling Given: Not Answered Alcohol Use Standard Drinks/Week Comments No 0 [...] Orientation Straight 12/02/2024 1: 12 PM EST Obstetrics History Para Term AB IAB SAB Ectopic Multiple Livin g Live Births 3 Last Filed Vital Signs Vital Sign Reading Time Taken Comments Blood Pressure 99/72 06/26/2025 2:00 PM EDT Pulse 93 06/26/2025 2:00 PM EDT Temperature 36.4 C (97.6 F) 06/26/2025 2:00 PM EDT Respiratory Rate 16 04/06/2025 10:55 AM EDT Oxygen Saturation 96% 04/06/2025 10:55 AM EDT Inhaled Oxygen Concentration - - Weight 79.4 kg (175 lb) 07/19/2025 1:23 PM EDT Height 165.1 cm (5' 5 ) 07/19/2025 1:23 PM EDT Body Mass Index 29.12 07/19/2025 1:23 PM EDT Plan of Treatment Upcoming Encounters Date Type Department Care Team (Late st Contact Info) Description 07/31/2025 2:00 PM EDT Office Visit Adult Medicine - [place] [address] [place] [phone] Steven Abrams PA [address] [place] [address] 09/14/2025 2:45 PM EST Office Visit Pulmonology - [place] [address] [facility] [address] [place] [address] Connie Mckeon NP [address] [place] [phone] Health Maintenance Due Date Last Done Comments Diabetes: Annual Foot Exam 1978 Diabetes: Annual Retina Eye Exam 1978 Hepatitis A Vaccines (1 of 2 - Risk 2-dose series) 1987 Pneumococcal Vaccine: 50+ Years (1 of 2 - PCV) 1987 Cervical Cancer Screening: Pap Smear 1989 Zoster Vaccines (1 of 2) 09/22/2011 07/28/2011 Hepatitis B Vaccines (3 of 3 - 19+ 3-dose series) 10/20/2012 08/25/2012, 08/06/2011 COVID-19 Vaccine (3 - Moderna risk series) 09/26/2021 08/29/2021, 08/01/2021 Colorectal Cancer Screening: Colonoscopy 10/11/2022 HIV Screening 10/11/2022 Hepatitis C Screening 10/11/2022 Social Influencers of Health Screening 10/11/2022 DTaP,Tdap,and Td Vaccines (2 - Td or Tdap) 05/18/2023 05/18/2013 Diabetes: Annual Urine Albumin-Creatinine Ratio (uACR) 07/10/2023 07/10/2022 Depression Screening 11/02/2024 06/20/2024 Lung Cancer Screening (Low Dose CT) 06/24/2025 06/24/2024, 06/23/2024 Influenza Vaccine (#1) 2025 08/26/2022 Diabetes: Blood Sugar Control Test (HGBA1C) 09/21/2025 03/21/2025, 11/23/2023 Diabetes: Annual GFR (Glomerular Filtration Rate) 03/22/2026 03/22/2025, 03/21/2025, 03/20/2025, Additional history exists Breast Cancer Screening 07/19/2027 07/19/2025 Cholesterol Screening (Lipid Panel) 11/23/2028 11/23/2023 RSV Immunization Adult Patients (1 - 1-dose 75+ series) 2043 Varicella Vaccines Aged Out 07/28/2011 No longer eligible based on patient's age to complete this topic HIB Vaccines Aged Out No longer eligi ble based on patient's age to complete this topic HPV Vaccines Aged Out No longer eligi ble based on patient's age to complete this topic IPV Vaccines Aged Out No longer eligi ble based on patient's age to complete this topic MMR Vaccines Aged Out No longer eligi ble based on patient's age to complete this topic Meningococcal ACWY Vaccine Aged Out N o longer eligible based on patient's age to complete this topic Meningococcal B Vaccine Aged Out No l onger eligible based on patient's age to complete this topic RSV Immunization Patients Under 20 months Aged Out No longer eligible based on patient's age to complete this topic Procedures Procedure Name Priority Date/Time Associated Diagnosis Comments MG MAMMO DIGITAL DIAGNOSTIC W MARCIAL BILAT Routine 07/19/2025 2:40 PM EDT Breast pain US AXILLA (BREAST) LIMITED RIGHT Routine 07/19/2025 2:34 PM EDT Breast pain ROUTINE EEG Routine 05/04/2025 1:36 PM EDT XR CHEST 2 VIEWS Routine 05/01/2025 3:19 PM EDT Chronic obstructive pulmonary disease with acute exacerbation (CMS/HCC V24, CMS/HCC V28) Nocturnal hypoxia Bipolar affective disorder, remission status unspecified (CMS/HCC V24, CMS/HCC V28) MR BRAIN WO CONTRAST Routine 05/01/2025 3:10 PM EDT Post concussion syndrome BASIC METABOLIC PANEL Routine 03/22/2025 6:44 AM EDT HEMOGLOBIN A1C Add-On 03/21/2025 5:[address] LUNG SCREENING LOW DOSE Routine 06/24/2024 2:25 PM EDT Encounter for screening for malignant neoplasm of respiratory organs HM DEPRESSION SCREENING Routine 06/20/2024 LIPID PANEL Routine 11/23/2023 HM URINE ALBUMIN CREATININE RATIO Routine 07/10/2022 from Last 3 Months or Most Recently Relevant to Health Maintenance Results * MG Mammo Digital Diagnostic w Marcial bilat (07/19/2025 2:40 PM EDT) Anatomical Region Laterality Modality Breast Bilateral Mammography 07/19/2025 2:39 PM EDT Impressions 07/19/2025 2:42 PM EDT No evidence of breast malignancy. Patient was instructed to follow-up with her referring physician. BI-RADS CATEGORY: Mammography: 1 - NEGATIVE Ultrasound: 1 - NEGATIVE RECOMMENDATIONS: Screening bilateral mammogram is recommended in 1 year. Mammo Location: [facility], [address] [place] [address], [phone], . -------- FINAL REPORT -------- Dictated By: Sania Montano Dictated Date: 07/19/2025 14:39 ET Assigned Physician: Sania Montano Reviewed and Electronically Signed By: Sania Montano Signed Date: 07/19/2025 14:42 ET Workstation ID: [id number] Transcribed By: Self Edit Transcribed Date: 07/19/2025 [...] year. Mammo Location: [facility], [address] [place] [address], [id number], . -------- FINAL REPORT -------- Dictated By: Sania Montano Dictated Date: 07/19/2025 14:39 ET Assigned Physician: Sania Montano Reviewed and Electronically Signed By: Sania Montano Signed Date: 07/19/2025 14:42 ET Workstation ID: [id number] Transcribed By: Self Edit Transcribed Date: 07/19/2025 14:39 ET us Steven HANEY IMG BI PROCEDURES Final Result * US Axilla (Breast) Limited Right (07/19/2025 [...] year. Mammo Location: [facility], [address] [place] [address], [id number], . -------- FINAL REPORT -------- Dictated By: Sania Montano Dictated Date: 07/19/2025 14:39 ET Assigned Physician: Sania Montano Reviewed and Electronically Signed By: Sania Montano Signed Date: 07/19/2025 14:42 ET Workstation ID: [id number] Transcribed By: Self Edit Transcribed Date: 07/19/2025 [...] year. Mammo Location: [facility], [address] [place] [address], [phone], . -------- FINAL REPORT -------- Dictated By: Sania Montano Dictated Date: 07/19/2025 14:39 ET Assigned Physician: Sania Montano Reviewed and Electronically Signed By: Sania Montano Signed Date: 07/19/2025 14:42 ET Workstation ID: [id number] Transcribed By: Self Edit Transcribed Date: 07/19/2025 14:39 ET us Steven HANEY IMG US PROCEDURES Final Result * Routine EEG (05/04/2025 1:36 PM EDT) us Steven HANEY NEUROLOGY ORDERABLES Final Res ult * XR Chest 2 Views (05/01/2025 3:19 PM EDT) Anatomical Region Laterality Modality Body Radiographic Anali ging 05/01/2025 4:50 PM EDT Impressions 05/01/2025 4:51 PM EDT Mild diffuse prominence of interstitium which could represent a viral process versus worsening chronic interstitial changes. -------- FINAL REPORT -------- Dictated By: Renetta Adams Dictated Date: 05/01/2025 16:50 ET Assigned Physician: Renetta Adams Reviewed and Electronically Signed By: Renetta Adams Signed Date: 05/01/2025 16:51 ET Workstation ID: [id number] Transcribed By: Self Edit Transcribed Date: 05/01/2025 16:50 ET Narrative 05/01/2025 4:51 PM EDT HISTORY: continued cough TECHNIQUE: PA and lateral radiographs of the chest COMPARISON: Chest radiograph from 09/07/2023 FINDINGS: There is a normal cardiomediastinal silhouette. There is mild diffuse prominence of the interstitium. No focal consolidation. Mild degenerative changes of the thoracic spine. Procedure Note Renetta Adams MD - 05/01/2025 HISTORY: continued cough TECHNIQUE: PA and lateral radiographs of the chest COMPARISON: Chest radiograph from 09/07/2023 FINDINGS: There is a normal cardiomediastinal silhouette. There is mild diffuseprominence of the interstitium. No focal consolidation. Mild degenerativechanges of the thoracic spine. IMPRESSION: Mild diffuse prominence of interstitium which could represent a viralprocess versus worsening chronic interstitial changes. -------- FINAL REPORT -------- Dictated By: Renetta Adams Dictated Date: 05/01/2025 16:50 ET Assigned Physician: Renetta Adams Reviewed and Electronically Signed By: Renetta Adams Signed Date: 05/01/2025 16:51 ET Workstation ID: [id number] Transcribed By: Self Edit Transcribed Date: 05/01/2025 16:50 ET Connie Mckeon GEODESIST IMG XR PROCEDURES Final Result * MR Brain wo Contrast (05/01/2025 3:10 PM EDT) Anatomical Region Laterality Modality Head and Neck Magnetic Resonan ce 05/01/2025 6:12 PM EDT Impressions 05/01/2025 6:19 PM EDT Impression: 1. No acute intracranial process. -------- FINAL REPORT -------- Dictated By: Renetta Adams Dictated Date: 05/01/2025 18:12 ET Assigned Physician: Renetta Adams Reviewed and Electronically Signed By: Renetta Adams Signed Date: 05/01/2025 18:19 ET Workstation ID: [id number] Transcribed By: Self Edit Transcribed Date: 05/01/2025 18:12 ET Narrative 05/01/2025 6:19 PM EDT MRI BRAIN WITHOUT CONTRAST Clinical Statement: Memory Loss Dizziness, non-specific Mental status change, unknown cause Comparison: MRI brain from 02/08/2021 Technique: Multiplanar, multisequence MR images of the brain were obtained without contrast. Findings: There is no evidence of diffusion restriction. Minimal white matter hyperintensities within the supraventricular and periventricular region consistent with microvascular ischemic changes. Intracranial flow voids are within normal limits. The ventricular system is prominent commensurate with the degree of volume loss. The basilar cisterns are within normal limits. The craniocervical junction is grossly within normal limits. The orbits and globes are within normal limits. Trace mucosal thickening within the paranasal sinuses. Fluid within the bilateral mastoids. Procedure Note Renetta Adams MD - 05/01/2025 MRI BRAIN WITHOUT CONTRAST Clinical Statement: Memory Loss Dizziness, non-specific Mental status change, unknown cause Comparison: MRI brain from 02/08/2021 Technique: Multiplanar, multisequence MR images of the brain wereobtained without contrast. Findings: There is no evidence of diffusion restriction. Minimal whitematter hyperintensities within the supraventricular and periventricularregion consistent with microvascular ischemic changes. Intracranial flowvoids are within normal limits. The ventricular system is prominentcommensurate with the degree of volume loss. The basilar cisterns arewithin normal limits. The craniocervical junction is grossly within normallimits. The orbits and globes are within normal limits. Trace mucosalthickening within the paranasal sinuses. Fluid within the bilateralmastoids. IMPRESSION: Impression: 1. No acute intracranial process. -------- FINAL REPORT -------- Dictated By: Renetta Adams Dictated Date: 05/01/2025 18:12 ET Assigned Physician: Renetta Adams Reviewed and Electronically Signed By: Renetta Adams Signed Date: 05/01/2025 18:19 ET Workstation ID: [id number] Transcribed By: Self Edit Transcribed Date: 05/01/2025 18:12 ET Steven HANEY IM MRI PROCEDURES Final Resul t * (ABNORMAL) Basic metabolic panel (03/22/2025 6:44 AM EDT) Sodium 133 133 - 145 mmol/L LAB CHEMISTRY METHOD 03/22/2025 8:15 AM [facility] Potassium 5.2 3.5 - 5.5 mmol/L LAB CHEMISTRY METHOD 03/22/2025 8:15 AM [facility] Chloride 103 96 - 110 mmol/L LAB CHEMISTRY METHOD 03/22/2025 8:15 AM [facility] CO2 27 21 - 32 mmol/L LAB CHEMISTRY METHOD 03/22/2025 8:15 AM [facility] Anion Gap 3 3 - 11 LAB CHEMISTRY METHOD 03/22/2025 8:15 AM [facility] Glucose 334(H) 70 - 100 mg/dL LAB CHEMISTRY METHOD 03/22/2025 8:15 AM [facility] BUN 23 5 - 25 mg/dL LAB CHEMISTRY METHOD 03/22/2025 8:15 AM [facility] Creatinine 1.06 0.50 - 1.10 mg/dL LAB CHEMISTRY METHOD 03/22/2025 8:15 AM [facility] eGFR 62 >=60 mL/min/1. 73m2 LAB CHEMISTRY METHOD 03/22/2025 8:15 AM [facility] Comment:Calculation based on the Chronic Kidney Disease Epidemiology Collaboration (CKD-EPI) equation refit without adjustment for race. BUN/Creatinine Ratio 21.7 LAB CHEMISTRY METHOD 03/22/2025 8:15 AM [facility] Calcium 9.5 8.5 - 10.5 mg/dL LAB CHEMISTRY METHOD 03/22/2025 8:15 AM [facility] Blood Venous blood specimen / Unknown Venipuncture / Unknown 03/22/2025 6:44 AM EDT 03/22/2025 7:02 AM EDT Garth Quarles MD LAB BLOOD ORDERABLES Final Resu lt Performing Organization Address [facility]/ZIP Co de Phone Number [facility] [address] [place] [address], * (ABNORMAL) Hemoglobin A1c (03/21/2025 5:18 AM EDT) Hemoglobin A1C 8.2(H) <6.5 % LAB CHEMISTRY METHOD 03/24/2025 8:52 AM EDT [facility] Mean Bld Glu Estim. 189 mg/dL LAB CHEMISTRY METHOD 03/24/2025 8:52 AM EDT [facility] Blood Venous blood specimen / Unknown Venipuncture / Unknown 03/21/2025 5:18 AM EDT 03/21/2025 5:36 AM EDT Garth Quarles MD LAB BLOOD ORDERABLES Final Resu lt Performing Organization Address [facility]/ZIP Co de Phone Number [facility] [address] [place] [address], * CT LUNG SCREENING LOW DOSE (06/24/2024 2:25 PM EDT) Anatomical Region Laterality Modality Computed Tomogra phy 06/23/2024 3:29 PM EDT Narrative 06/24/2024 2:25 PM EDT [facility] Diagnostic Imaging Department [address] [place] [address] Patient: SOFYA RAJPUT D.O.B./Age/Sex: 1970 - 54 - F Unit#: [id number] Location/Status: SPDICATLS/REG CLI [facility] Ordering Physician: RYANANGELIKAERIKCONNIE GEODESIST CT Lung Screening Low Dose - 06/23/24 - 1543 Report Status:Signed PROCEDURE: CT chest lung cancer screening low dose examination. INDICATION: CT lung screening. TECHNIQUE: Chest CT without intravenous contrast was performed. Low-dose examination was performed. Reformatted images were evaluated. DOSE: CTDIvol: 4.9mGy. Total exam DLP: 169.9mGy-cm COMPARISON: CT angiogram of the chest August 2022 FINDINGS: NODULES: See discussion below. LUNGS: Minimal emphysematous changes. Significant inflammatory changes are noted. Comparison is made to the examination in August 2022. There is tree-in-bud nodularity throughout much of the right upper lobe with scattered more prominent centrilobular nodules at the base of the right upper lobe that appears slightly increased from the examination previously. Decreased inflammatory changes are noted within the right middle lobe and in the right lower lobe. There remains some regions of nodularity and scattered tree-in-bud nodularity. There are scattered groundglass infiltrates in the left chest is not present previously. Some regions of significant nodularity in the left chest are no longer visualized while several other small new regions of nodularity are evident most prominently in the medial aspect of the left lower lobe. No confluent consolidation or effusion. The most prominent solid nodule is not larger than 6 mm. OTHER: Limited views of the upper abdomen appear normal. Small, nonspecific mediastinal lymph nodes are noted that are slightly increased in number but stable from previous examination and likely reactive. Mild degenerative changes of the thoracic spine. IMPRESSION: Findings described above are suggestive of ongoing infectious/inflammatory process. Pulmonary consultation regarding treatment is advised. Follow-up exam ination is based on the size of the largest nodules that are favored to be inflammatory. Lung-RADS 3. Follow up examination is advised in six months. Dictating Physician: ILSA HAMILTON MD Electronically Signed by: ILSA HAMILTON MD Dic Date/Time: 06/24/24 1408 Sign date/Time: 06/24/24 1425 Procedure Note Ilsa Hamilton MD - 08/17/2024 [facility] Diagnostic Imaging Department [address] [place] [address] Patient: SOFYA RAJPUT Komal /Age/Sex: 1970 - 54 - F Unit#: [id number] Location/Status: SPDICATLS/[facility] CLI Mnemonic/Ordering Site: [facility] Ordering Physician: CONNIE MCKEON GEODESIST CT Lung Screening Low Dose - 06/23/24 - 1543 Report Status:Signed PROCEDURE: CT chest lung cancer screening low dose examination. INDICATION: CT lung screening. TECHNIQUE: Chest CT without intravenous contrast was performed.Low-dose examination was performed. Reformatted images were evaluated. DOSE: CTDIvol: 4.9mGy. Total exam DLP: 169.9mGy-cm COMPARISON: CT angiogram of the chest August 2022 FINDINGS: NODULES: See discussion below. LUNGS: Minimal emphysematous changes. Significant inflammatory changesare noted. Comparison is made to the examination in August 2022. There is tree-in-bud nodularity throughout much of the right upper lobe withscattered more prominent centrilobular nodules at the base of the right upper lobethat appears slightly increased from the examination previously. Decreased inflammatory changes are noted within the right middle lobe andin the right lower lobe. There remains some regions of nodularity andscattered tree-in-bud nodularity. There are scattered groundglass infiltrates in the left chest is notpresent previously. Some regions of significant nodularity in the left chest areno longer visualized while several other small new regions of nodularityare evident most prominently in the medial aspect of the left lower lobe.No confluent consolidation or effusion. The most prominent solid nodule is not larger than 6 mm. OTHER: Limited views of the upper abdomen appear normal. Small,nonspecific mediastinal lymph nodes are noted that are slightly increased in numberbut stable from previous examination and likely reactive. Mild degenerative changes of the thoracic spine. IMPRESSION: Findings described above are suggestive of ongoinginfectious/inflammatory process. Pulmonary consultation regarding treatment is advised.Follow-up exam ination is based on the size of the largest nodules that are favored elieser inflammatory. Lung-RADS 3. Follow up examination is advised in six months. Dictating Physician: ILSA HAMILTON MD Electronically Signed by: ILSA HAMILTON MD Dic Date/Time: 06/24/24 1408 Sign date/Time: 06/24/24 1425 Connie Mckeon GEODESIST IMG CT PROCEDURES Final Result * Depression Screening (06/20/2024) Pathologist [facility] Depression Screening Abstracted Result [facility] Provider HEALTH MAINTENANCE Final Result * (ABNORMAL) Lipid panel (11/23/2023) [facility] LDL/HDL Ratio 4 0 - 4 Triglycerides 212(A) 0 - 150 mg/dL Cholesterol 157 0 - 200 mg/dL HDL 36(A) >=40 mg/dL LDL Cholesterol 79 0 - 100 mg/dL Blood Venous blood specimen / Unknown Result [facility] Historical Provider LAB BLOOD ORDERABLES Christa l Result * Urine Albumin Creatinine Ratio (07/10/2022) Pathologist [facility] Urine Albumin Creatinine Ratio Abstracted Historical Provider HEALTH MAINTENANCE Final Result from Last 3 Months or Most Recently Relevant to Health Maintenance Insurance [facility] Advance Directives Documents on File Type Date Recorded Patient Head Bone Grinder Expl anation Health Care Decision (hx) 08/17/2024 11:40 AM Health Care Decision (hx) 05/01/2021 ADVANCE DIRECTIVE * Full Code - Default (Latest Code Status on File) Date Activated Date Inactivated Comments 03/21/2025 1:39 AM 03/22/2025 6:17 PM This is orde r is used when code status has not been discussed with the patient, or code status is otherwise unknown/unconfirmed To update the patient's code status, place a code status order. Do not modify or discontinue any currently active code status orders. Care Teams System Programmer Relationship Specialty Start Date End Date Philly Moss MD [address] [place] [id number] PCP - General Internal Medicine 08/29/24
== END 2025-07-25 14:37 | disposition home or self-care (01) ==
LOC: HO.HSM 14:10
PROVIDERS: Visit Provider Psychiatry & Neurology Neurology
DX: G93.40 Encephalopathy, unspecified (principal)
CPT/HCPCS: 99214

== ENCOUNTER → 2025-07-25 14:09 | Outpatient (BNVA) | payer OTHER, SELFPAY | PROVIDERS: Visit Provider Psychiatry & Neurology Neurology | DX: G93.40 Encephalopathy, unspecified (principal) | CPT/HCPCS: 99212 ==

== ENCOUNTER 2025-08-25 12:15 | Outpatient (REF) | payer OTHER, SELFPAY ==
--- NOTE | 2025-08-25 12:46 | ECG_ITS ---
Test Reason : QTC CHECK Blood Pressure : */* mmHG Vent. Rate : 95 BPM Atrial Rate : 95 BPM P-R Int : 180 ms QRS Dur : 98 ms QT Int : 370 ms P-R-T Axes : 58 58 59 degrees QTcB Int : 464 ms Normal sinus rhythm Normal ECG No previous ECGs available Referred By: Shavon Brar Electronically Signed By: RYLEY JUSTIN MD
[2025-08-25 12:49] LABS: MANUAL DIFF FLAG NO
[2025-08-25 12:59] LABS: Ammonia 32 umol/L (13-55)
[2025-08-25 13:45] LABS: Hematocrit 37.8 % (37.0-47.0); Hemoglobin 12.3 g/dl (12.0-16.0); Imm Gran Abs Auto 0.06 X10*3/uL (0.00-0.03); Imm Gran Pct Auto 0.5 % (0.0-0.4); Lymphocytes Absolute Auto 3.8 X10*3/uL (1.2-4.9); Mean Corpuscular HGB Conc 32.5 g/dl (31.0-35.0); Mean Corpuscular Hemoglobin 28.7 pg (27.0-33.0); Mean Corpuscular Volume 88.3 fL (80.0-98.0); NRBC Abs Auto 0.000 X10*3/uL (0.0-0.012); NRBC Pct Auto 0.0 /100WBC (0.0-0.2); Platelet Count 273 X10*3/uL (160-400); Red Blood Count 4.28 X10*6/uL (4.20-5.50); White Blood Count 12.1 X10*3/uL (4.8-10.8)
[2025-08-25 13:56] LABS: Cannabinoid Screen Urine Not Detected (Not Detect)
--- OUTSIDE RECORDS SUMMARY | 2025-08-25 14:25 | XMS_ITS | Encounter Summary ---
Author Organization [facility] Address [address] [place] [address] Care Team Providers Care Critical Care Physician Assistant Name Role Phone Philly Moss MD Primary Care Prov ider Reason for Visit * Reason Onset Date Comments Medication Problem 08/11/2025 Encounter Details Date Type Department Care Team ([facility] st Contact Info) Description 08/11/2025 Telephone Adult Medicine - [place] [address] [place] [phone] Philly Moss MD [address] [place] [address] Social History Tobacco Use Types Packs/Day Years Used Date Smoking Tobacco: Every Day Cigarettes 1.5 41.8 Started: 11/02/1983 Smokeless Tobacco: Never Alcohol Use Standard Drinks/Week Comments No 0 (1 standard drink = 0.6 oz pur e alcohol) Interpersonal Safety Answer Date Record ed Physical Abuse Unrecognized value 03/21/2025 Verbal Abuse Unrecognized value 03/21/2025 Comments No Sex and Gender Information Value Date Recorded Sex Assigned at Female 12/02/2024 1:12 PM EST Legal Sex Female 11:19 PM EST Gender Identity Female 12/02/2024 1:12 PM EST Sexual Orientation Straight 12/02/2024 1: 12 PM EST documented as of this encounter Progress Notes * Xiomara Padilla - 08/11/2025 1:21 PM EDT Tried to complete prior auth it states it does not need pa. Probably will not reject until the actual date. When the patient tries to refill medication PA will come through via the pharmacy. * Sean Fleming - 08/11/2025 12:56 PM EDT Medication Problem: What is the name of the medication patient is having a problem with?: tiotropium (Spiriva Respimat)1.25 mcg/actuation inhalation spray What is the problem?: Pt states that as of 09/16/25 she won't be able to get this medication anymore without a PA. Who is calling about the problem? : The patient Is this a NEW medication?: yes How long has the patient been taking this medication? Who prescribed this medication for the patient? Who is patients PCP?: Philly Moss MD [facility] / Plan: [employer] MEDICAID / Product Type: *No Product type* / documented in this encounter Plan of Treatment Upcoming Encounters Date Type Department Care Team (Late st Contact Info) Description 09/14/2025 2:45 PM EST Office Visit Pulmonology - [place] [address] [facility] [address] [place] [address] Porsche Hernandez NP [address] [place] [phone] 10/31/2025 1:30 PM EST Office Visit Adult Medicine - [place] [address] [place] [phone] Steven Abrams PA [address] [place] [address] documented as of this encounter Visit Diagnoses Not on filedocumented in this encounter Care Teams Critical Care Physician Assistant Relationship Specialty Start Date End Date Philly Moss MD [address] [place] [address] PCP - General Internal Medicine 08/29/24 documented as of this encounter
--- OUTSIDE RECORDS SUMMARY | 2025-08-25 14:25 | XMS_ITS | Encounter Summary ---
Author Organization [facility] Address [address] [place] [address] Care Team Providers Care Cosmetic Dentist Name Role Phone Philly Moss MD Primary Care Prov ider Reason for Visit * Reason Onset Date Comments Medication Problem 08/21/2025 Encounter Details Date Type Department Care Team ([facility] st Contact Info) Description 08/21/2025 Telephone Adult Medicine - [place] [address] [place] [phone] Philly Moss MD [address] [place] [address] Social History Tobacco Use Types Packs/Day Years [...] as of this encounter Progress Notes * Philly Moss MD - 08/21/2025 9:53 AM EDT I have not seen patient in over a year and I do not see this medication on her medication list * Zayda Humphrey MA - 08/21/2025 9:45 AM EDT Please resubmit a new Rx for Sitagliptan .Please Reply Back to [facility] Name Zayda Humphrey [facility] Prior Ext: [phone] * Sean Fleming - 08/21/2025 9:14 AM EDT Medication Problem: What is the name of the medication patient is having a problem with?: Sitagliptan What is the problem?: Pt's PA is going to be up as of 09/16/25 and needs a new one started. Who is calling about the problem? : The patient Is this a NEW medication?: no How long has the patient been taking this medication? Who prescribed this medication for the patient? Who is patients PCP?: Philly Moss MD Payor: [employer] PLAN / Plan: [facility] MED[facility] / Product Type: *No Product type* / documented in this encounter Plan of Treatment Upcoming Encounters Date Type Department Care Team (Late st Contact Info) Description 09/14/2025 2:45 PM EST Office Visit Pulmonology - [place] [address] [facility] [address] [place] [phone] Porsche Hernandez NP [address] [place] [phone] 10/31/2025 1:30 PM EST Office Visit Adult Medicine - [place] [address] [place] [address] Steven Abrams PA [address] [place], [place] documented as of this encounter Visit Diagnoses Not on filedocumented in this encounter Care Teams Cosmetic Dentist Relationship Specialty Start Date End Date Philly Moss MD [address] [place] [address] PCP - General Internal Medicine 08/29/24 documented as of this encounter
--- OUTSIDE RECORDS SUMMARY | 2025-08-25 14:25 | XMS_ITS | Clinical Summary ---
Author Organization [facility] Address [address] [place] [address] Care Team Providers Care Manager Money Name Role Phone Unavailable Primary Care Provider [...] Exam 10/25/2022 Influenza Vaccine (#1) 2025 Insurance [facility] Medicaid
--- OUTSIDE RECORDS SUMMARY | 2025-08-25 14:25 | XMS_ITS | Encounter Summary ---
Author Organization [facility] Address [address] [place] [address] Care Team Providers Care Park Attendant Name Role Phone Philly Moss MD Primary Care Prov ider Encounter Details Date Type Department Care Team (Late st Contact Info) Description 08/14/2025 Telephone Adult Medicine - [place] [address] [place] [phone] Philly Moss MD [address] [place] [address] Social History Tobacco Use Types Packs/Day Years [...] as of this encounter Progress Notes * Kyung Cardenas LPN - 08/14/2025 11:39 AM EDT Spoke with patient and let her know Colby is out of office Offered her appointment to discuss and she declined, states she is going to see someone Thursday for a med eval, she will wait to see what happens * Dorothy Hunter - 08/14/2025 9:49 AM EDT Medication Problem: What is the name of the medication patient is having a problem with?: clonopin What is the problem?: not working well for pt Who is calling about the problem? : The patient Is this a NEW medication?: no How long has the patient been taking this medication? Who prescribed this medication for the patient? Belinda Thornton Who is patients PCP?: Philly Moss MD Payor: [employer] PLAN / Plan: [employer] MEDICAID / Product Type: *No Product type* / documented in this encounter Plan of Treatment Upcoming Encounters Date Type Department Care Team (Late st Contact Info) Description 09/14/2025 2:45 PM EST Office Visit Pulmonology - [place] [address] [facility] [address] [place] [address] Porsche Hernandez NP [address] [place] [phone] 10/31/2025 1:30 PM EST Office Visit Adult Medicine - [place] [address] [place] [address] Steven Abrams PA [address] [place] [address] documented as of this encounter Visit Diagnoses Not on filedocumented in this encounter Care Teams Park Attendant Relationship Specialty Start Date End Date Philly Moss MD [address] [place] [address] PCP - General Internal Medicine 08/29/24 documented as of this encounter
--- OUTSIDE RECORDS SUMMARY | 2025-08-25 14:25 | XMS_ITS | Encounter Summary ---
Author Organization [facility] Address [address] [place] [address] Care Team Providers Care Lockstitch Coat Joiner Name Role Phone Philly Moss MD Primary Care Prov ider Reason for Visit * Reason Onset Date Comments wants to speak with steven abrams 08/07/2025 Encounter Details Date Type Department Care Team ([facility] Contact Info) Description 08/07/2025 Telephone Adult Medicine [facility] [address] [place] [phone] Philly Moss MD [address] [place] [address] Social History Tobacco Use Types Packs/Day Years [...] as of this encounter Progress Notes * MEDINA Flores - 08/10/2025 5:10 PM EDT Triage? I do not think there is anything we can do about her VNA * Tiny Blackman MA - 08/10/2025 3:37 PM EDT Not sure who to send this too just making you aware of message * Vivian Guido - 08/07/2025 9:30 AM EDT Patient calling stating she wants to speak with Steven Abrams. She has a lock box of medication that has been locked for 2 years. Patient states that it was the VNA who locked it. She wants to fire the VNA's and get the box unlocked. She would like a call back: [phone] documented in this encounter Plan of Treatment Upcoming Encounters Date Type Department Care Team (Late st Contact Info) Description 09/14/2025 2:45 PM EST Office Visit Pulmonology - [place] [address] [facility] [address] [place] [address] Porsche Hernandez NP [address] [place] [phone] 10/31/2025 1:30 PM EST Office Visit Adult Medicine - [place] [address] [place] [address] Steven Abrams PA [address] [place], [place] documented as of this encounter Visit Diagnoses Not on filedocumented in this encounter Care Teams Lockstitch Coat Joiner Relationship Specialty Start Date End Date Philly Moss MD [address] [place], [place] PCP - General Internal Medicine 08/29/24 documented as of this encounter
--- OUTSIDE RECORDS SUMMARY | 2025-08-25 14:25 | XMS_ITS | Encounter Summary ---
Author Organization [facility] Address [address] [place] [address] Care Team Providers Care Rotary Engraver Name Role Phone Philly Moss MD Primary Care Prov ider Reason for Visit * Reason Onset Date Comments Forms/questionnaires 08/16/2025 Encounter Details Date Type Department Care Team ([facility] st Contact Info) Description 08/16/2025 Telephone Adult Medicine [facility] [address] [place] [phone] Philly Moss MD [address] [place] [address] Social History Tobacco Use Types Packs/Day Years [...] as of this encounter Progress Notes * Yennifer Lange MA - 08/21/2025 9:04 AM EDT Patient called in and spoke to BSR, she did not check if eversource received. I refaxed. * Yennifer Lange MA - 08/16/2025 12:21 PM EDT Eversource form signed on 07/31 by Colby had a confirmation sheet attached. I re- faxed vs requesting pcp to complete a new one. * Dorothy Harrison - 08/16/2025 9:42 AM EDT Pt needs her eversource for refaxed over - please advise when done - pt states she gave the form Guille Abrams on 07/31/25 documented in this encounter Plan of Treatment Upcoming Encounters Date Type Department Care Team (Late st Contact Info) Description 09/14/2025 2:45 PM EST Office Visit Pulmonology - [place] [address] [facility] [address] [place] [address] Porsche Hernandez NP [address] [place] [phone] 10/31/2025 1:30 PM EST Office Visit Adult Medicine - [place] [address] [place] [address] Steven Abrams PA [address] [place] [address] documented as of this encounter Visit Diagnoses Not on filedocumented in this encounter Care Teams Rotary Engraver Relationship Specialty Start Date End Date Philly Moss MD [address] [place] [address] PCP - General Internal Medicine 08/29/24 documented as of this encounter
--- OUTSIDE RECORDS SUMMARY | 2025-08-25 14:25 | XMS_ITS | Encounter Summary ---
Author Organization [facility] Address [address] [place] [address] Care Team Providers Care Side Hemmer Name Role Phone Philly Moss MD Primary Care Prov ider Reason for Visit * Reason Onset Date Comments Results 08/02/2025 Encounter Details Date Type Department Care Team ([facility] st Contact Info) Description 08/02/2025 Results Follow-Up Adult Medicine [facility] [address] [place] [address] Steven Abrams PA [address] [place] [address] Social History Tobacco Use Types Packs/Day Years [...] as of this encounter Progress Notes * Vivian Guido - 08/02/2025 2:36 PM EDT Patient returning call. Please call back. documented in this encounter Plan of Treatment Upcoming Encounters Date Type Department Care Team (Late st Contact Info) Description 09/14/2025 2:45 PM EST Office Visit Pulmonology - [place] [address] [place] [phone] Porsche Hernandez NP [address] [place] [phone] 10/31/2025 1:30 PM EST Office Visit Adult Medicine - [place] [address] [place] [phone] Steven Abrams PA [address] [place], [place] [phone] documented as of this encounter Visit Diagnoses Not on filedocumented in this encounter Care Teams Side Hemmer Relationship Specialty Start Date End Date Philly Moss MD [address] [place] [address] PCP - General Internal Medicine 08/29/24 documented as of this encounter
--- OUTSIDE RECORDS SUMMARY | 2025-08-25 14:26 | XMS_ITS | Clinical Summary ---
Author Organization [facility] Address [address] [place] [address] Care Team Providers Care Inspector Wreath Name Role Phone Philly Moss MD Primary [...] 2 (two) times a day. 024 Active melatonin 3 mg tablet Take 2 tablets (6 mg total) by mouth at bedtime. 025 Active nicotine (NICODERM CQ) 21 mg/[address] 1 patch on the skin 1 (one) time each day. 30 each 025 Active tiotropium (Spiriva Respimat) 1.25 mcg/actuation inhalation sprayIndication s:Chronic obstructive pulmonary disease with acute exacerbation (CMS/HCC V24, CMS/[facility] V28) Inhale 2 puffs by mouth 1 [...] ons:Chronic obstructive pulmonary disease with acute exacerbation (CMS/HCC V24, CMS/HCC V28) Inhale 2 puffs by mouth 2 (two) times a day. This medication has inhaler steroid: Rinse mouth with water and expectorate after each dose to prevent oral/esophageal candidiasis or fungal infection. 3 each 1 025 Active ibuprofen (ADVIL,MOTRIN) 800 mg tablet Take 1 tablet (800 mg total) by mouth every 8 (eight) hours if needed (Pain). 90 tablet Active Lantus Solostar U-100 Insulin 100 unit/mL (3 mL) injection pen USE 14 UNITS SUBCUTANEOUSLY EVERY NIGHT AT BEDTIME 15 mL 2 025 Active Ultra-Fine Pen Needle 31 gauge x 5/16 needle USE DIRECTED. FOR INJECTIONS FOUR TIMES A DAY 300 each 025 Active gabapentin (NEURONTIN) 300 mg capsule TAKE 1 CAPSULE BY MOUTH THREE TIMES A DAY 90 capsule Active BD Ultra-Fine Short Pen Needle 31 gauge x 5/16 needle USE DIRECTED. FOR INJECTIONS FOUR TIMES A DAY 100 each 2 025 2024 Discontinued Januvia 50 mg tablet TAKE 1 TABLET BY MOUTH DAILY 90 tablet 1 025 2024 Discontinued(F ormulary change) gabapentin (NEURONTIN) 300 mg capsule TAKE 1 CAPSULE BY MOUTH THREE TIMES A DAY 270 capsule 1 025 2024 Discontinued Active Problems Problem Noted Date Diagnosed Date Respiratory distress 03/22/2025 Acute respiratory failure wi th hypoxia and hypercapnia ([facility] V24, [facility] V28) 03/21/2025 Nocturnal hypoxia 09/05/2023 Overview (08/03/2024): 08/04/23 DAVI on RA showed: 1. Lowest oxygen saturation is 87%. 2. Time spent less than 88% is 19 seconds. 3. No supplemental oxygen is indicated during sleep. COPD exacerbation ([facility] V24, 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 V24, [facility] V28) 07/10/2022 COVID-19 12/04/2021 Overview (08/03/2024): 12/02/2021 Post concussion syndrome 03/22/2021 Non-proliferative diabetic r etinopathy ([facility] V24, [facility] V28) 06/30/2019 Retinal hemorrhage due to se condary diabetes ([facility] V24, [facility] V28) 04/27/2019 Overview (08/03/2024): Left eye S/p retonipexy for retinal tear Hidradenitis 10/31/2018 Type II diabetes mellitus wi th renal manifestations ([facility] V24, [facility] V28) 05/12/2018 Fatty liver 02/06/2016 Thyroid nodule [...] disorder) 03/01/2009 Overview (08/03/2024): Thierry Rodriguez at [facility]. IMO update Bipolar disorder ([facility] V24, [facility] V28) 02/02 Overview (08/03/2024): Kirby Clements. Encounters Date Type Department Care Team Description 08/21/2025 Telephone Adult Medicine - [place] [address] [place] [phone] Philly Laird MD 08/16/2025 Telephone Adult Medicine - [place] [address] [place] [phone] Philly Laird MD 08/14/2025 Telephone Adult [address] [phone] Philly Laird MD 08/11/2025 Telephone Adult [address] [phone] Philly Laird MD 08/07/2025 Telephone Adult [address] [phone] Philly Laird MD 08/02/2025 Results Follow-Up [address] [phone] Steven Abrams PA 07/31/2025 2:00 PM EDT Office Visit [address] [phone] Steven Abrams PA Type 2 diabetes mellitus with other ophthalmic complication, with long-term current use of insulin (CMS/HCC V24, CMS/HCC V28) (Primary Dx); Attention deficit hyperactivity disorder (ADHD), unspecified ADHD type; Bipolar affective disorder, remission status unspecified (CMS/HCC V24, CMS/HCC V28); Frequent falls; Memory changes 07/27/2025 Telephone Adult [address] [phone] Philly Laird MD 07/26/2025 Telephone Adult [address] [phone] Philly Laird MD 07/19/2025 1:53 PM EDT - 07/19/2025 11:59 PM EDT Hospital Encounter [facility] Ultrasound [address] [place] [phone] Breast pain Discharge Disposition: Home or Self Care 07/19/2025 1:00 PM EDT - 07/19/2025 11:59 PM EDT Hospital [facility] [address] [phone] Breast pain Discharge Disposition: Home or Self Care 07/13/2025 Telephone Adult [address] [phone] Philly Laird MD 07/05/2025 Billing Patient Not Present [address] [phone] Philly Laird MD Recurrent major depressive disorder, remission status unspecified ([facility] V24) (Primary Dx); Generalized anxiety disorder; Patient's noncompliance with other medical treatment and regimen due to unspecified reason; Borderline personality disorder ([facility] V24, [facility] V28); Acute respiratory failure with hypoxia ([facility] V24, [facility] V28); Pneumonia due to infectious organism, unspecified laterality, unspecified part of lung 07/05/[address] [phone] Philly Laird MD 06/28/2025 Telephone Adult [address] [phone] Philly Laird MD 06/27/[address] [phone] Philly Laird MD 06/26/2025 2:00 PM EDT Office Visit [address] [phone] Steven Abrams PA Easy bruising (Primary Dx); Type 2 diabetes mellitus with other ophthalmic complication, with long-term current use of insulin ([facility] V24, [facility] V28); Bipolar affective disorder, remission status unspecified ([facility] V24, [facility] V28); Chronic bronchitis, unspecified chronic bronchitis type ([facility] V24, [facility] V28); Frequent falls; Altered mental status, unspecified altered mental status type 06/26/2025 Telephone Adult [address] [phone] Steven Abrams PA 06/26/2025 Telephone Adult Medicine - [place] [address] [place] [address] Steven Abrams PA 06/19/2025 Telephone Pulmonology - [place] [address] [place] [address] Connie Mckeon NP 06/16/[address] [facility] [address] [place] [phone] Philly Laird MD 06/13/[address] [facility] [address] [place] [phone] Steven Abrams PA from Last 3 Months Immunizations Immunization Administration Dates Next Due Hepatitis B (Ncdammb-Z-Pzikz , Recombivax HB-Adult) 19yo and older 08/25/2012,08/06/2011 [...] disease OTHER SURGICAL HISTORY 2019 Left PROCEDURE: RI RPR RETINAL DTCHMNT DRG SUBRETINAL FLUID PC Medical History Medical History Date Comments Bipolar disorder ([facility] V2 4, [facility] V28) DX:Bipolar disorder (HCC) ADD (attention deficit disorder) DX:ADD (attention deficit disorder) Morbid obesity (CMS/HCC V24, [facility] V28) 07/28/2011 DX:Morbid obesity (HCC) Historical Medical DX 07/30/2011 DX:Elevate d LFT's Type 2 diabetes mellitus wit hout complication, without long-term current use of insulin (CMS/[facility] V24, [facility] V28) 03/26/2018 DX:Type 2 diabetes mellitus without complication, without long-term current use of insulin (HCC) Uncontrolled type 2 diabetes mellitus with microalbuminuria, [...] 1.5 41.8 Started: 11/02/1983 Smokeless Tobacco: Never Tobacco Cessation:Ready [...] Sign Reading Time Taken Comments Blood Pressure 112/68 07/31/2025 2:01 PM EDT Pulse 103 07/31/2025 2:01 PM EDT Temperature 36.7 C (98 F) 07/31/2025 2:01 PM EDT Respiratory Rate 16 04/06/2025 10:55 AM EDT Oxygen Saturation 96% 04/06/2025 10:55 AM EDT Inhaled Oxygen Concentration - - Weight 78 kg (172 lb) 07/31/2025 2:01 PM EDT Height 165.1 cm (5' 5 ) 07/31/2025 2:01 PM EDT Body Mass Index 28.62 07/31/2025 2:01 PM EDT Plan of Treatment Upcoming Encounters Date Type Department Care Team (Late st Contact Info) Description 09/14/2025 2:45 PM EST Office Visit Pulmonology - [place] [address] [facility] [place] [address] Connie Mckeon NP [address] [place] [phone] 10/31/2025 1:30 PM EST Office Visit Adult Medicine - [place] [address] [place] [phone] Steven Abrams PA [address] [place] [address] Health Maintenance Due Date Last Done Comments Colorectal Cancer Screening: Colonoscopy 1968 Diabetes: Annual Foot Exam 1978 Diabetes: Annual Retina Eye Exam 1978 Hepatitis A Vaccines (1 of 2 - Risk 2-dose series) 1987 Pneumococcal Vaccine: 50+ Years (1 of 2 - PCV) 1987 Cervical Cancer Screening: Pap Smear 1989 Zoster Vaccines (1 of 2) 09/22/2011 07/28/2011 Hepatitis B Vaccines (3 of 3 - 19+ 3-dose series) 10/20/2012 08/25/2012, 08/06/2011 RSV Immunization Adult Patients (1 - Risk 50-74 years 1-dose series) 2018 COVID-19 Vaccine (3 - Moderna risk series) 09/26/2021 08/29/2021, 08/01/2021 HIV Screening 10/11/2022 Hepatitis C Screening 10/11/2022 Social Influencers of Health Screening 10/11/2022 DTaP,Tdap,and Td Vaccines (2 - Td or Tdap) 05/18/2023 05/18/2013 Diabetes: Annual Urine Albumin-Creatinine Ratio (uACR) 07/10/2023 07/10/2022 Depression Screening 11/02/2024 06/20/2024 Lung Cancer Screening (Low Dose CT) 06/24/2025 06/24/2024, 06/23/2024 Influenza Vaccine (#1) 2025 08/26/2022 Diabetes: Blood Sugar Control Test (HGBA1C) 01/28/2026 07/31/2025, 03/21/2025, 11/23/2023 Diabetes: Annual GFR (Glomerular Filtration Rate) 07/31/2026 07/31/2025, 03/22/2025, 03/21/2025, Additional history exists Breast Cancer Screening 07/19/2027 07/19/2025 Cholesterol Screening (Lipid Panel) 07/31/2030 07/31/2025, 11/23/2023 Varicella Vaccines Aged Out 07/28/2011 No longer [...] Procedure Name Priority Date/Time Associated Diagnosis Comments CBC WITH AUTO DIFFERENTIAL Routine 07/31/2025 2:50 PM EDT Easy bruising CBC AND DIFFERENTIAL Routine 07/31/2025 2:50 PM EDT Easy bruising COMPREHENSIVE METABOLIC PANEL Routine 07/31/2025 2:50 PM EDT Type 2 diabetes mellitus with other ophthalmic complication, with long-term current use of insulin ([facility] V24, [facility] V28) LIPID PANEL WITH REFLEX TO DIRECT LDL Routine 07/31/2025 2:50 PM EDT Type 2 diabetes mellitus with other ophthalmic complication, with long-term current use of insulin ([facility]/HCC V24, [facility] V28) HEMOGLOBIN A1C Routine 07/31/2025 2:50 PM EDT Type 2 diabetes mellitus with other ophthalmic complication, with long-term current use of insulin (CMS/[facility] V24, CMS/[facility] V28) MG MAMMO DIGITAL DIAGNOSTIC W MARCIAL BILAT Routine 07/19/2025 2:40 PM EDT Breast pain US BREAST LIMITED RIGHT Routine 07/19/2025 2:34 PM EDT Breast pain CT LUNG SCREENING LOW DOSE Routine 06/24/2024 2:25 PM EDT Encounter for screening for malignant neoplasm of respiratory organs HM DEPRESSION SCREENING Routine 06/20/2024 URINE ALBUMIN CREATININE RATIO Routine 07/10/2022 from Last 3 Months or Most Recently Relevant to Health Maintenance Results * (ABNORMAL) Lipid panel with reflex to direct LDL (07/31/2025 2:50 PM EDT) Cholesterol 155 0 - 200 mg/dL LAB CHEMISTRY METHOD 07/31/2025 6:[address] [facility] Triglycerides 166(H) 0 - 150 mg/dL LAB CHEMISTRY METHOD 07/31/2025 6:[address] [facility] HDL 62 >=40 mg/dL LAB CHEMISTRY METHOD 07/31/2025 6:[address] [facility] LDL Calculated 60 0 - 100 mg/dL LAB CHEMISTRY METHOD 07/31/2025 6:[address] [facility] Comment:Estimated LDL Calcul ated using equation: Total cholesterol - HDL cholesterol - (Triglycerides/5) VLDL Cholesterol Willem 33.2 mg/dL LAB CHEMISTRY METHOD 07/31/2025 6:[address] [facility] Non HDL Chol. (LDL+VLDL) 93 <145 mg/dL LAB CHEMISTRY METHOD 07/31/2025 6:[address] [facility] Chol/HDL Ratio 2.5 0.0 - 4.4 LAB CHEMISTRY METHOD 07/31/2025 6:[address] [facility] Blood Venous blood specimen / Unknown Venipuncture / Unknown 07/31/2025 2:50 PM EDT 07/31/2025 2:50 PM EDT us Steven HANEY LAB BLOOD ORDERABLES Final Res ult [facility] [address] [place] [address], * (ABNORMAL) CBC auto differential (07/31/2025 2:50 PM EDT) WBC 12.2(H) 4.8 - 10.8 K/mcL LAB HEMETOLOGY METHOD 07/31/2025 6:[address] [facility] RBC 4.40 3.80 - 4.80 M/mcL LAB HEMETOLOGY METHOD 07/31/2025 6:[address] [facility] Hemoglobin 12.6 11.5 - 16.0 g/dL LAB HEMETOLOGY METHOD 07/31/2025 6:[address] [facility] Hematocrit 39.8 35.0 - 47.0 % LAB HEMETOLOGY METHOD 07/31/2025 6:[address] [facility] MCV 90.2 79.0 - 98.0 FL LAB HEMETOLOGY METHOD 07/31/2025 6:[address] [facility] MCH 28.6 27.0 - 32.0 pcg LAB HEMETOLOGY METHOD 07/31/2025 6:[address] [facility] MCHC 31.7(L) 32.0 - 37.0 g/dL LAB HEMETOLOGY METHOD 07/31/2025 6:[address] [facility] RDW 14.6 11.0 - 15.0 % LAB HEMETOLOGY METHOD 07/31/2025 6:[address] [facility] Platelets 229 130 - 400 K/mcL LAB HEMETOLOGY METHOD 07/31/2025 6:[address] [facility] MPV 10.5 7.0 - 11.0 FL LAB HEMETOLOGY METHOD 07/31/2025 6:[address] [facility] NRBC 0.0 <1.0 % LAB HEMETOLOGY METHOD 07/31/2025 6:[address] [facility] NRBC Absolute 0.00 <0.10 K/mcL LAB HEMETOLOGY METHOD 07/31/2025 6:[address] [facility] Neutrophils Relative 59.8 % LAB HEMETOLOGY METHOD 07/31/2025 6:[address] [facility] Lymphocytes Relative 31.8 % LAB HEMETOLOGY METHOD 07/31/2025 6:[address] [facility] Monocytes Relative 4.4 % LAB HEMETOLOGY METHOD 07/31/2025 6:[address] [facility] Eosinophils Relative 3.0 % LAB HEMETOLOGY METHOD 07/31/2025 6:[address] [facility] Basophils Relative 0.5 % LAB HEMETOLOGY METHOD 07/31/2025 6:[address] [facility] Immature Granulocytes Relative 0.5 % LAB HEMETOLOGY METHOD 07/31/2025 6:[address] [facility] Neutrophils Absolute 7.28(H) 1.50 - 7.00 K/mcL LAB HEMETOLOGY METHOD 07/31/2025 6:[address] [facility] Lymphocytes Absolute 3.87 1.00 - 5.00 K/mcL LAB HEMETOLOGY METHOD 07/31/2025 6:[address] [facility] Monocytes Absolute 0.54 0.20 - 1.00 K/[facility] LAB HEMETOLOGY METHOD 07/31/2025 6:[address] [facility] Eosinophils Absolute 0.37 0.00 - 0.50 K/[facility] LAB HEMETOLOGY METHOD 07/31/2025 6:[address] [facility] Basophils Absolute 0.06 0.00 - 0.20 K/[facility] LAB HEMETOLOGY METHOD 07/31/2025 6:[address] [facility] Immature Granulocytes Absolute 0.06(H) 0.00 - 0.03 K/[facility] LAB HEMETOLOGY METHOD 07/31/2025 6:[address] [facility] Blood Venous blood specimen / Unknown Venipuncture / Unknown 07/31/2025 2:50 PM EDT 07/31/2025 2:50 PM EDT us Steven HANEY LAB BLOOD ORDERABLES Final Res ult [facility] [address] [place] [address], * (ABNORMAL) Hemoglobin A1c (07/31/2025 2:50 PM EDT) Hemoglobin A1C 7.1(H) <6.5 % LAB CHEMISTRY METHOD 08/01/2025 8:[address] [facility] Mean Bld Glu Estim. 157 mg/dL LAB CHEMISTRY METHOD 08/01/2025 8:[address] [facility] Blood Venous blood specimen / Unknown Venipuncture / Unknown 07/31/2025 2:50 PM EDT 07/31/2025 2:50 PM EDT us Steven HANEY LAB BLOOD ORDERABLES Final Res ult [facility] [address] [place] [address], * (ABNORMAL) Comprehensive metabolic panel (07/31/2025 2:50 PM EDT) Sodium 140 133 - 145 mmol/L LAB CHEMISTRY METHOD 07/31/2025 6:[address] [facility] Potassium 4.5 3.5 - 5.5 mmol/L LAB CHEMISTRY METHOD 07/31/2025 6:[address] [facility] Chloride 111(H) 96 - 110 mmol/L LAB CHEMISTRY METHOD 07/31/2025 6:[address] [facility] CO2 25 21 - 32 mmol/L LAB CHEMISTRY METHOD 07/31/2025 6:[address] [facility] Anion Gap 4 3 - 11 LAB CHEMISTRY METHOD 07/31/2025 6:[address] [facility] Glucose 167(H) 70 - 100 mg/dL LAB CHEMISTRY METHOD 07/31/2025 6:[address] [facility] BUN 17 5 - 25 mg/dL LAB CHEMISTRY METHOD 07/31/2025 6:[address] [facility] Creatinine 1.11(H) 0.50 - 1.10 mg/dL LAB CHEMISTRY METHOD [facility] eGFR 58(L) >=60 mL/min/1. 73m2 LAB CHEMISTRY METHOD 07/31/2025 6:[address] [facility] Comment:Calculation based on the Chronic Kidney Disease Epidemiology Collaboration (CKD-EPI) equation refit without adjustment for race. BUN/Creatinine Ratio 15.3 LAB CHEMISTRY METHOD 07/31/2025 6:[address] [facility] Calcium 9.4 8.5 - 10.5 mg/dL LAB CHEMISTRY METHOD 07/31/2025 6:[address] [facility] AST (SGOT) 21 10 - 42 unit/L LAB CHEMISTRY METHOD 07/31/2025 6:[address] [facility] ALT (SGPT) 34 10 - 60 unit/L LAB CHEMISTRY METHOD 07/31/2025 6:[address] [facility] Alkaline Phosphatase 150(H) 42 - 121 unit/L LAB CHEMISTRY METHOD 07/31/2025 6:[address] [facility] Total Protein 7.8 6.0 - 8.0 g/dL LAB CHEMISTRY METHOD 07/31/2025 6:[address] [facility] Albumin 3.9 3.2 - 5.0 g/dL LAB CHEMISTRY METHOD 07/31/2025 6:[address] [facility] Total Bilirubin 0.2 0.0 - 1.4 mg/dL LAB CHEMISTRY METHOD 07/31/2025 6:[address] [facility] Blood Venous blood specimen / Unknown Venipuncture / Unknown 07/31/2025 2:50 PM EDT 07/31/2025 2:50 PM EDT Steven HANEY LAB BLOOD ORDERABLES Final Res ult [facility] [address] [place] [address], [place] [phone] * MG Mammo Digital Diagnostic w Marcial [...] year. Mammo Location: [facility], [address] [place] [address], [id number], . -------- FINAL REPORT -------- Dictated By: Sania Montano Dictated Date: 07/19/2025 14:39 ET Assigned Physician: Sania Montano Reviewed and Electronically Signed By: Sania Montano Signed Date: 07/19/2025 14:42 ET Workstation ID: [id number] Transcribed By: Self Edit Transcribed Date: 07/19/2025 [...] year. Mammo Location: [facility], [address] [place] [address], [phone], . -------- FINAL REPORT -------- Dictated By: Sania Montano Dictated Date: 07/19/2025 14:39 ET Assigned Physician: Sania Montano Reviewed and Electronically Signed By: Sania Montano Signed Date: 07/19/2025 14:42 ET Workstation ID: [id number] Transcribed By: Self Edit Transcribed Date: 07/19/2025 14:39 ET us Steven HANEY IMG BI PROCEDURES Final Result * US Breast Limited Right (07/19/2025 2:34 PM EDT) Anatomical Region Laterality Modality Breast Right Ultrasound Impressions 07/19/2025 2:42 PM EDT No evidence of breast malignancy. Patient was instructed to follow-up with her referring physician. BI-RADS CATEGORY: Mammography: 1 - NEGATIVE Ultrasound: 1 - NEGATIVE RECOMMENDATIONS: Screening bilateral mammogram is recommended in 1 year. Mammo Location: [facility], [address] [place] [address], [id number], . -------- FINAL REPORT -------- Dictated By: Sania Montano Dictated Date: 07/19/2025 14:39 ET Assigned Physician: Sania Montano Reviewed and Electronically Signed By: Sania Montano Signed Date: 07/19/2025 14:42 ET Workstation ID: [id number] Transcribed By: Self Edit Transcribed Date: 07/19/2025 [...] fibroglandular tissue. No suspicious mass or cyst. us Steven HANEY IMAna Rosa US PROCEDURES Edited Resul t - Final * CT LUNG SCREENING LOW DOSE (06/24/2024 2:25 PM EDT) Anatomical Region Laterality Modality Computed Tomogra phy 06/23/2024 3:29 PM EDT Narrative 06/24/2024 2:25 PM EDT [facility] Diagnostic Imaging Department [address] [place] [address] Patient: SOFYA RAJPUT /Age/Sex: 1970 - 54 - F Unit#: [id number] [facility] Mnemonic/Ordering Site: [facility] Ordering Physician: CONNIE MCKEON NP CT Lung Screening Low Dose - 06/23/24 [...] Procedure Note Ilsa Hamilton MD - 08/17/2024 [facility] Diagnostic Imaging Department [address] [place] [id number] Patient: SOFYA RAJPUT /Age/Sex: 1970 - 54 - F Unit#: [id number] Location/Status: SPDICATLS/REG CLI Mnemonic/Ordering Site: [facility] Ordering Physician: CONNIE MCKEON WOOD SETTER CT Lung Screening Low Dose - 06/23/24 [...] 1408 Sign date/Time: 06/24/24 1425 Connie Mckeon WOOD SETTER IMG CT PROCEDURES Final Result * Depression Screening (06/20/2024) Depression Screening Abstracted Historical Provider HEALTH MAINTENANCE Final Result * Urine Albumin Creatinine Ratio (07/10/2022) Urine Albumin Creatinine Ratio Abstracted Historical Provider HEALTH MAINTENANCE Final Result from Last 3 Months or Most Recently Relevant to Health Maintenance Insurance [facility] [employer] Advance Directives Documents on File Type Date Recorded Patient Assembly Inspector Helper Expl anation Health Care Decision (hx) 08/17/2024 [...] currently active code status orders. Care Teams Inspector Wreath Relationship Specialty Start Date End Date Philly Moss MD [address] [place] [id number] PCP - General Internal Medicine 08/29/24
--- OUTSIDE RECORDS SUMMARY | 2025-08-25 14:26 | XMS_ITS | Encounter Summary ---
Author Organization [facility] Address [address] [place] [address] Care Team Providers Care Assembler Final Name Role Phone Philly Moss MD Primary Care Prov ider Reason for Visit * Reason Onset Date Comments Vomiting 07/26/2025 Encounter Details Date Type Department Care Team ([facility] st Contact Info) Description 07/26/2025 Telephone Adult Medicine - [place] [address] [place] [id number] Philly Moss MD [address] [place] [address] Social History Tobacco Use Types Packs/Day Years [...] as of this encounter Progress Notes * Urbano Mead RN - 07/26/2025 4:06 PM EDT Tried calling phone is not accepting calls * Sean Fleming - 07/26/2025 3:41 PM EDT Patient call requires triage: Symptoms patient is presenting: Pt c/o being unable to keep any food down for long. States anythingshe eats comes up. Pt recently lost her daughter as of last week. How long has patient had these symptoms?: For ALL patients calling to schedule any appointment (routine, sick visit, follow up, consult, etc.) in the outpatient setting please ask the following questions: Do you have fever of higher than 101, sore throat with difficulty swallowing or severe shortness ofbreath? If YES to any of these above symptoms, send a message to triage and do not book. Red dot. If no, an audio or video visit should be booked. Have you had close contact with someone with Coronavirus in the last 14 days? Have you traveled abroad? Have you traveled recently to another state outside of [place], [place], [place], [place], [place], [place], [place]? o If yes, did you quarantine for 14 days or have a negative covid test? If yes to any of the above, patient is not to be scheduled in office until after 14 day quarantine or negative covid test. If pain or injury related was it due to an accident at work or from a motor vehicle accident? If yes, date of accident/Injury: If yes, gather 3rd republican insurance information [employer] Democrat Information: PCP: Philly Moss MD Payor: [facility] / Plan: [facility] MEDICAID / Product Type: *No Product type* / documented in this encounter Plan of Treatment Upcoming Encounters Date Type Department Care Team (Late st Contact Info) Description 09/14/2025 2:45 PM EST Office Visit Pulmonology - [place] [address] [address] [address] [place] [address] Porsche Hernandez NP [address] [place] [phone] 10/31/2025 1:30 PM EST Office Visit Adult Medicine - [place] [address] [place] [phone] Steven Abrams PA [address] [place], [place] documented as of this encounter Visit Diagnoses Not on filedocumented in this encounter Care Teams Assembler Final Relationship Specialty Start Date End Date Philly Moss MD [address] [place] [address] PCP - General Internal Medicine 08/29/24 documented as of this encounter
[2025-08-25 14:51] LABS: Alanine Aminotransferase 29 U/L (0-31); Albumin Level 4.7 g/dL (3.5-5.0); Alkaline Phosphatase 143 U/L (39-117); Anion Gap 11 (12-20); Aspartate Amino Transferase 27 U/L (5-31); Blood Urea Nitrogen 15 mg/dL (9-16); Calcium 9.6 mg/dL (8.4-10.2); Carbon Dioxide 25 mmol/L (22-29); Chloride 110 mmol/L (96-108); Estimated Glomerular Filt Rate 48; Iron 92 mcg/dL (30-160); Magnesium 2.0 mg/dL (1.6-2.6); Percent Iron Saturation 38 % (15-50); Potassium 4.3 mmol/L (3.3-5.1); Sodium 142 mmol/L (135-145); Total Iron Binding Capacity 241 mcg/dL (228-428); Total Protein 8.2 g/dL (6.5-8.0); Unsaturated Iron Binding 149 ug/dL
[2025-08-25 14:55] LABS: Folate 4.9 ng/mL (> or = 4.0); Vitamin B12 352 pg/mL (200-900)
[2025-08-25 14:59] LABS: Free T4 (Free Thyroxine) 0.79 ng/dL (0.71-1.85); Thyroid Stimulating Hormone 0.89 uIU/mL (0.32-4.0)
[2025-08-25 15:50] LABS: Gamma Glutamyl Transpeptidase 117 U/L (7-33)
== END 2025-08-25 12:16 | disposition home or self-care (01) ==
LOC: HO.LAB 12:15
PROVIDERS: PCP Physician Assistant Medical; Visit Provider Psychiatry & Neurology Psychiatry
DX: F11.21 Opioid dependence, in remission (principal); F43.10 Post-traumatic stress disorder, unspecified; F31.9 Bipolar disorder, unspecified
CPT/HCPCS: 80053; 80307; 82140; 82550; 82607; 82746; 82977; 83036; 83090; 83540; 83735; 84425; 84439; 84443; 85025; 85652; 86140; 93005

== ENCOUNTER → 2025-08-25 12:46 | Outpatient (BNV) | payer OTHER, SELFPAY | PROVIDERS: PCP Physician Assistant Medical; Visit Provider Internal Medicine Cardiovascular Disease | DX: Z13.6 Encounter for screening for cardiovascular disorders (principal) | CPT/HCPCS: 93010 ==

== ENCOUNTER 2025-09-01 14:00 | Outpatient (RCR) | payer OTHER, SELFPAY ==
[2025-08-25 13:41] VITALS: BMI 29.7
[2025-08-25 14:10] VITALS: BP 100/60; PULSE 96; TEMP 36.7
--- NOTE | 2025-08-25 14:41 | PC.ADMIT ---
Patient is a 55 year old partnered female who was referred to [facility] by [facility] iwona secondary to increased depression, anxiety, and grief. Patient reports she recently lost her oldest daughter on August 09, 2025 and is feeling overwhelmed with grief. She also reports her son, whom lives with her, is sniffing fentanyl daily and has a court date coming up for beating up an elderly person in a wheelchair. Patient stated she thinks he will be going to [facility] for three years. In addition, patient also reports several other losses in her life including her youngest daughter whom she lost a few years ago, a nephew, and her best friend. Patient has a partner named Lawson whom she lives with and has been together with for 27 years. Patient shared her own battles with substance use. She denied any current substance use. Reports history of addiction to Vicodin and has been to the Methadone clinic for MAT in the past. Reports she has been sober for the past 13 years. She also reports a remote history of cocaine use last use in 2011. Patient reports at the time she was using she lost her children. Patient is alert and oriented x4. She presented with depressed mood and very anxious affect. Her speech is loud and pressured at times. Patient stated she does have hearing aids however she is not wearing them today as she stated they are not comfortable. She is cooperative. Tearful at times when talking about the deaths of her daughters. Patient denied SI, no HI. She was given a copy of her safety plan if needed. Medications updated with patient and patient's pharmacy.
--- NOTE | 2025-08-25 23:58 | HO.PS.ADMBH ---
HPI Date of Service: 08/25/25 Chief Complaint: depression Sources of Information: patient interviewed, chart reviewed and crisis/core team assessment reviewed HPI Narrative: Patient is a 55-year-old female with history of PTSD substance use who was referred through and crisis services struggles with depression and anxiety in the context of bereavement. I just buried my oldest daughter... I need a med check. I've been on the same medications for 20 years . She reports that her daughter of liver failure related to snf struggles with alcoholism. She also lost her younger daughter in October 2023, possibly related to an overdose, however circumstances were unclear inpatient relayed having unresolved trauma related to circumstances surrounding her younger daughter who apparently froze to . Now I dread going home all I see is Blayne and Tana (in photos and memories around the home)... I cry alot. 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 She denies any struggles with wanting to give up on life, denies any history of SI or suicide attempts in the past. No SIB. Denies any recent substance use and says she has been clean for years. She reports there being a lot of tension at home with her son who is slated to go to court and possibly will go to skilled nursing. Good I hope he goes , relays that her son has been known to be aggressive in the past and is currently ?not giving me any space to grieve . Generally she feels unsupported by her partner and son. [facility] Medical History (Updated 08/28/25 @ 08:17 by Shavon Brar MD) Lung nodule Fractured tibia Seizures Pneumonia Peripheral neuropathy Insomnia ADD (attention deficit disorder) H/O polydrug abuse Anxiety disorder Bipolar disorder Type 2 diabetes mellitus Encephalopathy Surgical History (Updated 08/25/25 @ 13:40 by Kiesha Obrien RN) H/O: hysterectomy Diagnostics Vital Signs (24Hr): Vital Signs - 24 hr 08/25/25 14:10 Temperature 98.1 F Pulse Rate 96 Blood Pressure 100/60 BMI result Body Mass Index 29.7 Meds/Allergies Meds Home Medications ?Medication ?Instructions ?Recorded ?Confirmed ?Type dextroamphetamine-amphetamine 20 1 tab PO DAILY 05/11/25 08/25/25 History mg tablet gabapentin 300 mg capsule 300 mg PO TID 05/11/25 08/25/25 History omeprazole 20 mg capsule,delayed 20 mg PO DAILY 05/11/25 08/25/25 History release quetiapine 300 mg tablet 300 mg PO BEDTIME 05/11/25 08/25/25 History albuterol sulfate 90 mcg/actuation 2 puff inhalation Q4H PRN sob 08/25/25 08/25/25 History aerosol inhaler (Ventolin HFA) bupropion HCl 150 mg 24 hr tablet, 150 mg PO DAILY 08/25/25 08/25/25 History extended release bupropion HCl 300 mg 24 hr tablet, 300 mg PO DAILY 08/25/25 08/25/25 History extended release clonazepam 1 mg tablet 1 mg PO QID PRN Anxiety 08/25/25 08/25/25 History dextroamphetamine-amphetamine ER 1 cap PO QAM 08/25/25 08/25/25 History 30 mg 24hr capsule,extend release (Adderall XR) fluticasone propionate 230 2 puff inhalation BID 08/25/25 08/25/25 History mcg-salmeterol 21 mcg/actuation HFA inhaler (Advair HFA) hydroxyzine pamoate 25 mg capsule 25 - 50 mg PO BID PRN Anxiety 08/25/25 08/25/25 History insulin glargine 100 unit/mL (3 14 unit subcut BEDTIME 08/25/25 08/25/25 History mL) subcutaneous pen (Lantus Solostar U-100 Insulin) melatonin 3 mg tablet 3 - 6 mg PO BEDTIME 08/25/25 08/25/25 History quetiapine 100 mg tablet 100 - 200 mg PO BEDTIME 08/25/25 08/25/25 History sitagliptin phosphate 50 mg tablet 50 mg PO DAILY 08/25/25 08/25/25 History (Januvia) tiotropium bromide 1.25 2 puff inhalation DAILY 08/25/25 08/25/25 History mcg/actuation mist for inhalation (Spiriva Respimat) venlafaxine 150 mg 300 mg PO DAILY 08/25/25 08/25/25 History capsule,extended release 24 hr Allergies Allergies Allergy/AdvReac Type Severity Reaction Status Date / Time cephalexin Allergy Unknown Other Verified 05/11/25 11:11 tramadol Allergy Unknown Other Verified 05/11/25 11:11 ibuprofen (From Motrin) Allergy Hives Verified 08/25/25 15:09 Codeine Sulfate Allergy Unknown Other Uncoded 05/11/25 11:11 Mental Status Exam Mental Status Exam Narrative: Alert, oriented, in no acute distress. Calm, cooperative, engaged. No psychomotor agitation or neurovegetative retardation. Eye contact maintained. Mood depressed, affect sad, moments of tearfulness otherwise no lability noted. Speech talkative without pressured speech. Thought process scattered, linear, coherent. Thought content related to stressors, ruminations, feeling overwhelmed, some transient helplessness and hopelessness, denies any SI,urge, intention or plan. Denies any aggressive ideation. No paranoia or delusional content elicited. No evidence of psychosis. Insight and judgment fair but adequate. Assessment & Plan Assessment & Plan (1) Complicated bereavement: Status: Acute Code(s): F43.21 - Adjustment disorder with depressed mood (2) Bipolar disorder: Status: Acute Code(s): F31.9 - Bipolar disorder, unspecified (3) Anxiety disorder: Status: Acute Code(s): F41.9 - Anxiety disorder, unspecified Plan Admit to [facility] reviewed on admission: afebrile, BP 100/60;?96 bpm continue regular medications for now Routine lab work as indicated EKG, routine for baseline QTc for medication considerations as indicated UDS as indicated Mass[facility] reviewed Continue to monitor as per protocol Patient educated on: diagnosis, medication risk/benefits and substance abuse Informed Consent: understands Reason for continued partial hosp. stay Substantial Risk for: inability to function and med/psych decompensation Certification I certify that partial hospital treatment is medically necessary due to the symptoms and problems resulting from the patient's mental illness and the failure to treat the patient at the partial hospital level of care would likely result in the patient requiring inpatient psychiatric care which could not be prevented at a less intensive level of care. Time Spent With Patient Time: Total time managing care of this patient today ____ minutes.
--- NOTE | 2025-08-28 11:50 | PC.NURSE ---
I spoke to Karly's VNA Carol. She stated she visits her 4 days a week for medication management. She has been seeing her for about a year. During that time Karly's mood has been labile, crying at times, coherent at other times and there have been times she has been incoherent, not oriented to date and time, thus Carol would send her to the ER for evaluation. She has a history of playing games with her Suboxone back in June thus this was discontinued. She has had Neuro workups that were negative d/t history of slurred speech. She has a history of a withdrawal seizure three years ago. Carol suspects she is using some type of substance. I get that sense as well.
[2025-08-28 15:04] LABS: Cannabinoid Screen Urine Not Detected (Not Detect)
--- NOTE | 2025-08-28 15:58 | PC.NURSE ---
Addendum entered by Kiesha Obrien RN 09/05/25 14:23: Faxed patient lab results to Karly's PCP's office. Spoke to Jose from that office who stated they did receive the faxed lab results that I sent to their office today and Dr. Christian will review the results. Original Note: Dr. Brar is aware of patient lab results including: Cl 110, Gap 11. Creat 1.16, eGFR 48, GGT 117, CRP 0.72, Protein total 8.2, Alk phos 143, A1C 7.1, Est Average glu 157, WBC 12.1, Imgran pct auto 0.5, ImGran Abs Auto 0.06, esr 37. EKG NSR QTc 464. No new orders.
== END 2025-09-01 23:59 | disposition home or self-care (01) ==
LOC: HO.PHPA 14:00
PROVIDERS: Visit Provider Psychiatry & Neurology Psychiatry
DX: F43.21 Adjustment disorder with depressed mood (principal); F31.9 Bipolar disorder, unspecified; F41.9 Anxiety disorder, unspecified; Z63.4 Disappearance and death of family member
CPT/HCPCS: 80307; 90791; 90853